=== PATIENT | female | born 1940 | race Caucasian/White ===

== ENCOUNTER → 2018-05-22 10:07 | Outpatient (CLI) | payer MEDICARE, OTHER, SELFPAY ==
[2018-05-22 12:23] LABS: Anion Gap 8 (5-15); BUN 13 mg/dL (7-18); Calcium,Total 9.5 mg/dL (8.5-10.1); Chloride 104 mmol/L (98-107); Cholesterol 203 mg/dL (200); Creatinine, Serum 0.81 mg/dL (0.55-1.02); EST Glomerular Filtration Rate 72 mL/min (>60); Est Glom Filt Rate - Afr Amer 88 mL/min (>60); Glucose 93 mg/dL (74-106); High Density Lipoprotein 69 mg/dL; Potassium 3.8 mmol/L (3.5-5.1); Sodium Level 141 mmol/L (136-145); Triglycerides 90 mg/dL; Very Low Density Lipoprotein 18 mg/dL (5-40)
== END ==
PROVIDERS: Family Provider Family Medicine; PCP Family Medicine; Visit Provider Family Medicine
DX: R07.89 Other chest pain (principal)
CPT/HCPCS: 36415; 80048; 80061

== ENCOUNTER → 2018-07-03 10:25 | Outpatient (CLI) | payer MEDICARE, OTHER, SELFPAY ==
--- NOTE | 2018-07-03 10:28 | BI_ITS ---
MAMMOGRAPHY - BILATERAL SCREENING REASON FOR EXAM: Female, 78 years old. Routine annual screening examination. PERTINENT HISTORY: Grandmother with breast cancer. TECHNIQUE: Digital bilateral breast derik (3D mammographic acquisition) in the CC and MLO projections. 2-D mediolateral oblique (MLO) and craniocaudad (CC) views of both breasts were obtained. CAD: Full Field Digital Mammography with Computer Added Detection was performed. COMPARISON: Comparison is made with prior outside examination dated January 11, 2013. FINDINGS: Breast Composition: There are scattered areas of fibroglandular density. There is a 4.3 mm x 3.8 mm well-defined nodule in the mid lateral aspect of the left breast at approximately the 3:00 position. Correlation with ultrasound is recommended. Stable small bilateral axillary lymph nodes. No other significant abnormalities are identified. BI/SCREENING MAMM (CAD), BILAT IMPRESSION: I suspect a 4.3 mm x 3.8 mm well-defined nodule at the 3:00 position of the breast. Correlation with ultrasound is recommended. ASSESSMENT CATEGORY: BIRADS Category 0: Incomplete. Need additional imaging evaluation. A letter regarding these results will be sent to the patient by the facility within 30 days. Approximately 10% of breast cancers are not detected by mammography. A normal mammogram should not delay biopsy of a clinically suspicious abnormality. [id number] Electronically Signed: Anmol Pandya MD at 13:43 EST Tel [phone], Service support ,
--- NOTE | 2018-07-03 10:30 | BD_ITS ---
STUDY: DUAL ENERGY X-RAY ABSORPTIOMETRY / DXA REASON FOR EXAM: Female, 77 years old. The patient is postmenopausal. Loss of height. TECHNIQUE: Bone Mineral Density (BMD) measurements of lumbar spine and bilateral hips were obtained. COMPARISON: Comparison is made with prior study dated July 13, 2006. FINDINGS: Lumbar Spine (L1-L4): g/cm2 (1.057) / T-score (-1.2) / Z-score (0.6) Findings are suggestive of osteopenia with a moderate fracture risk. Left Femur Total: g/cm2 (0.884) / T-score (-1.0) / Z-score (0.9) Left Femoral Neck: g/cm2 (0.827) / T-score (-1.5) / Z-score (0.5) Right Femur Total: g/cm2 (0.839) / T-score (-1.3) / Z-score (0.5) Right Femoral Neck: g/cm2 (0.829) / T-score (-1.5) / Z-score (0.5) The T-Scores on the most recent prior examination were: Lumbar Spine (L1-L4): There has been improvement of bone density since the previous examination. Left Femur Total: which represents a worsening of 2.8%. BD/Dexa Bone Density Study IMPRESSION: The patient is considered osteopenic as outlined below according to World [employer] Organization (WHO) criteria with a moderate fracture risk. There has been worsening of bone density since the previous examination. Reference Information: The T-score is the number of standard deviations above or below the standard which is normal for young adults at their peak bone mineral density. The World Health Organization (WHO) interprets the T-scores as follows: Above -1 Normal bone density Between -1 and -2.5 Osteopenia Equal to / or below -2.5 Osteoporosis As a practical clinical guideline, osteopenia may be graded as follows: Mild -1 through -1.5 Moderate -1.6 through -2.0 Severe -2.1 through -2.4 The Z-score is the number of standard deviations above or below age-matched controls. A Z-score of less than -1.5 would be considered abnormal. References: 1. NIH Osteoporosis and Related Bone Diseases http://www.osteo.org 2. International Society for Clinical Densitometry http://www.iscd.org 3. National Osteoporosis Foundation http://www.nof.org Electronically Signed: Anmol Pandya MD at 9:08 EST Tel [phone], Service support ,
== END ==
PROVIDERS: Family Provider Family Medicine; PCP Family Medicine; Visit Provider Family Medicine
DX: Z78.0 Asymptomatic menopausal state (principal); Z12.31 Encounter for screening mammogram for malignant neoplasm of breast
CPT/HCPCS: 77063; 77067; 77080

== ENCOUNTER → 2018-07-23 10:49 | Outpatient (CLI) | payer MEDICARE, OTHER, SELFPAY ==
--- NOTE | 2018-07-23 10:52 | US_ITS ---
STUDY: ULTRASOUND BREAST - LEFT REASON FOR EXAM: Female, 78 years old. Abnormal screening mammogram. TECHNIQUE: Axial and longitudinal images of the LEFT breast were performed with a high resolution ultrasound transducer. COMPARISON: Comparison is made with prior mammogram dated July 03, 2018. FINDINGS: LEFT Breast: There is a 3 mm x 4 mm x 1 mm cyst at the 3:00 position breast at 1 cm from nipple. This corresponds to the mammographic findings. US/Breast Limited Unilateral IMPRESSION: 3 mm x 4 mm x 1 mm cyst at the 3:00 position of the breast at 1 cm from the nipple. ASSESSMENT CATEGORY: BIRADS Category 2: Benign. A letter regarding these results will be sent to the patient by the facility within 30 days. Electronically Signed: Anmol Pandya MD at 14:01 EST Tel [phone], Service support ,
== END ==
PROVIDERS: Family Provider Family Medicine; PCP Family Medicine; Referring Provider Family Medicine; Visit Provider Family Medicine
DX: N60.02 Solitary cyst of left breast (principal)
CPT/HCPCS: 76642

== ENCOUNTER → 2019-02-18 15:40 | Outpatient (CLI) | payer MEDICARE, OTHER, SELFPAY ==
[2017-10-26 09:12] VITALS: BMI 36.8
--- NOTE | 2019-02-18 15:44 | RAD_ITS ---
STUDY: X-RAY - LUMBAR SPINE REASON FOR EXAM: Female, 78 years old. Low back pain TECHNIQUE: 5 view(s) of the lumbar spine were obtained. COMPARISON: None FINDINGS: Lumbar spine is intact and aligned with expected age-related degenerative changes in the discs, endplates and facets. Mineralization is normal. Paraspinous soft tissue shadows are unremarkable. SI joints are intact. RAD/L/S Spine Min 4 Views IMPRESSION: Expected age related change. Otherwise unremarkable lumbar spine. Electronically Signed: Gloria Stone, at 17:41 EDT Tel , Service support ,
== END ==
PROVIDERS: Family Provider Family Medicine; PCP Family Medicine; Referring Provider Family Medicine; Visit Provider Family Medicine
DX: M54.40 Lumbago with sciatica, unspecified side (principal)
CPT/HCPCS: 72110

== ENCOUNTER 2019-04-07 11:14 | Emergency (ER) | payer MEDICARE, OTHER, SELFPAY ==
[2019-04-07 11:14] VITALS: BP 138/77; PULSE 84; RESP 16; TEMP 36.7; O2SAT 97; BMI 30.2
--- NOTE | 2019-04-07 11:45 | RAD_ITS ---
STUDY: X-RAY - LEFT WRIST REASON FOR EXAM: Female, 78 years old. Left wrist pain after fall TECHNIQUE: 3 view(s) of the wrist were obtained. COMPARISON: None. FINDINGS: Impaction type comminuted fracture of the distal radius with possible intra-articular extension. Soft tissue swelling. Remainder is within normal limits RAD/Wrist min 3 Views IMPRESSION: As above Electronically Signed: Kamari Vasquez DO at 12:28 EDT Tel , Service support ,
--- NOTE | 2019-04-07 12:47 | ED.VIS.GEN ---
History of Present Illness <Lalito Almanza - Last Filed: 04/07/19 12:47> Informant: Patient, Significant Other Onset: Today Context: Sudden Onset Timing: Continuous Quality: sharp Location: left wrist Current Severity: Moderate Maximum Severity: Severe Worsened by: movement Relieved by: rest Associated Symptoms: denies Narrative: 78-year-old female [id number] presents with left wrist injury. Tripped and fell onto outstretched left wrist. No other injuries. No prodromal symptoms. No head trauma. No loss of consciousness. She denies numbness tingling or weakness. She is not on blood thinners. Prior similar symptoms: No Recent Illness/Hospitalization: No <Kamari Lindquist - Last Filed: 04/07/19 13:01> Chief Complaint: Upper Extremity Injury Past Medical History Smoking Status: Never smoker <Lalito Almanza - Last Filed: 04/07/19 12:47> Prior records reviewed: Yes Past Medical History: None Surgical History: no surgical history Lives: With Family Smoking Status: Never smoker <Kamari Lindquist - Last Filed: 04/07/19 13:01> - Allergies and Home Meds Allergies/Adverse Reactions: Allergies codeine Adverse Reaction (Verified 04/07/19 11:17) Upset Stomach Primary Care Physician: Daneila Dobbs DO [STAFF PHYSICIAN] - Curtis Bianchi MD [Primary Care Provider] - Review of Systems All systems negative except as indicated Musculoskeletal: Reports: Swelling, Extremity Pain <Kamari Lindquist - Last Filed: 04/07/19 13:01> Physical Exam Vital Signs/Narrative: Vital Signs Temp Pulse Resp BP Pulse Ox 04/07/19 11:14 98.1 F 84 16 138/77 H 97 <Lalito Almanza - Last Filed: 04/07/19 12:47> Vital Signs/Narrative: Vital Signs Temp Pulse Resp BP Pulse Ox 04/07/19 11:14 98.1 F 84 16 138/77 H 97 Inital Vital Signs reviewed: Yes General: Well nourished, Well developed, No Acute Distress Head: Normocephalic, Atraumatic Eyes: Perrl, EOMI ENT: Moist mucous membranes Neck: Supple, Nontender Cardiovascular: Regular rate, Regular rhythm Respiratory: No distress, CTA bilaterally, Chest nontender Abdomen: Soft, Nontender, Nondistended, Normal bowel sounds, No masses Back: Nontender Extremities: Tenderness - Diffusely swollen throughout the distal forearm and wrist. Skin intact. Diffusely tender throughout the distal radius and ulna. No snuffbox tenderness or pain with axial loading of the thumb. She has limited flexion and extension actively secondary to pain. Normal radial pulse. Normal active range of motion of all 5 fingers. Normal capillary refill and sensation all 5 fingers. No bony tenderness of the elbow. <Kamari Lindquist - Last Filed: 04/07/19 13:01> Diagnostic/Tx/Re-eval - Medical Decision Making Evaluate patient with our physician call center assistant. Patient tripped and fell. Breaking her left distal radius. Physical exam. Older female. No acute distress. HEENT exam unremarkable atraumatic. Lungs are clear. Heart regular rhythm. Chest wall nontender. Abdomen soft nontender. Moving all 4 extremities. Deformity and tenderness to the left distal radius. Consistent with a left wrist fracture. Skin is closed. Left hand is neurovascular intact. Neurologically she is awake alert deficits. Left wrist 3 views distal radius displaced fracture. Procedure: Hematoma block left wrist. Manually reduced. Short arm AP splint by ER. Impressions: 1. Fall with left distal radius displaced fracture 2. Hematoma block by ER 3. Left wrist distal radius fracture manual reduction by ER 4. Short arm AP splint by ER <Lalito Almanza - Last Filed: 04/07/19 12:47> ED Disposition <Lalito Almanza - Last Filed: 04/07/19 12:47> <Kamari Lindquist - Last Filed: 04/07/19 13:01> - Plan for ED Patient: Disposition: Home or Assisted Living Diagnosis: Distal radius fracture, left Instructions: RADIUS AND ULNA FX, Reduction Required Prescriptions: Hydrocodone Bitart/Apap 5-325 [[place] 5MG-325MG] 1 tab PO Q6H PRN PRN 3 Days #12 tab PRN Reason: Pain Prescription Printed Referrals: Curtis Bianchi MD [Primary Care Provider] - Daniela Dobbs DO [STAFF PHYSICIAN] -
--- NOTE | 2019-04-07 13:07 | ED.RN ---
1230-DR CAN AND PA IN TO SET WRIST FX AND APPLY SPLINT. LOCAL BLOCK PREFORMED. PT SALONI WELL.
== END 2019-04-07 13:09 | disposition home or self-care (01) ==
PROVIDERS: Emergency Provider Physician Assistant Medical; Family Provider Family Medicine; PCP Family Medicine
DX: S52.502A Unspecified fracture of the lower end of left radius, initial encounter for closed fracture (principal); W01.0XXA Fall on same level from slipping, tripping and stumbling without subsequent striking against object, initial encounter; Y93.9 Activity, unspecified
CPT/HCPCS: 25605; 73110; 99283

== ENCOUNTER → 2019-04-11 08:26 | Outpatient (CLI) | payer MEDICARE, OTHER, SELFPAY ==
[2019-04-11 08:20] VITALS: BMI 30.2
--- NOTE | 2019-04-11 08:28 | RAD_ITS ---
STUDY: X-RAY - LEFT WRIST REASON FOR EXAM: Female, 78 years old. Follow-up left wrist fracture. TECHNIQUE: 3 view(s) of the wrist were obtained. COMPARISON: Left wrist, April 07, 2019. FINDINGS: Again seen is the comminuted fracture of the distal radius which is unchanged in appearance. There is persistent mild dorsal angulation. Normal ulna. Normal radiocarpal articulation. Normal distal radioulnar articulation. Normal carpal bones. Normal carpal articulations. Normal carpometacarpal articulation of the thumb. Normal second through fifth carpometacarpal articulations. Normal visualized metacarpal bones. Continued soft tissue swelling. RAD/Wrist min 3 Views IMPRESSION: No interval change. Electronically Signed: Behzad Cutler DO at 16:49 EDT Tel [phone], Service support ,
== END ==
PROVIDERS: Family Provider Family Medicine; PCP Family Medicine; Referring Provider Physician Assistant; Visit Provider Physician Assistant
DX: S62.102A Fracture of unspecified carpal bone, left wrist, initial encounter for closed fracture (principal)
CPT/HCPCS: 73110

== ENCOUNTER → 2019-04-19 08:08 | Outpatient (CLI) | payer MEDICARE, OTHER, SELFPAY ==
[2019-04-19 08:04] VITALS: BMI 30.2
--- NOTE | 2019-04-19 08:09 | RAD_ITS ---
STUDY: X-RAY - LEFT WRIST REASON FOR EXAM: Female, 78 years old. Fracture follow-up TECHNIQUE: 3 view(s) of the wrist were obtained. COMPARISON: None. FINDINGS: Stable configuration of the distal radial fracture with deformity. Early healing is visualized. 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 No evidence of significant interval change. RAD/Wrist min 3 Views IMPRESSION: Stable configuration of the osseous structures, with early healing of the fracture. Electronically Signed: Alex Barbosa MD at 9:04 EDT Tel [phone], Service support ,
== END ==
PROVIDERS: Family Provider Family Medicine; PCP Family Medicine; Referring Provider Physician Assistant; Visit Provider Physician Assistant
DX: S52.502A Unspecified fracture of the lower end of left radius, initial encounter for closed fracture (principal); X58.XXXA Exposure to other specified factors, initial encounter
CPT/HCPCS: 73110

== ENCOUNTER → 2019-04-26 11:27 | Outpatient (CLI) | payer MEDICARE, OTHER, SELFPAY ==
[2019-04-19 08:04] VITALS: BMI 30.2
--- NOTE | 2019-04-26 11:28 | RAD_ITS ---
STUDY: X-RAY - LEFT WRIST REASON FOR EXAM: Female, 78 years old. Fracture TECHNIQUE: 3 view(s) of the wrist were obtained. COMPARISON: April 19, 2019 FINDINGS: Status post reduction and casting of distal radial fracture with fracture fragments in near anatomic alignment and position. No significant change since prior study. Mild callus deposition consistent with early healing RAD/Wrist min 3 Views IMPRESSION: Early healing fracture of the distal radius status post reduction and casting Electronically Signed: Cole Spann MD at 18:02 EDT , Service support ,
== END ==
PROVIDERS: Family Provider Family Medicine; PCP Family Medicine; Referring Provider Physician Assistant; Visit Provider Physician Assistant
DX: S52.502A Unspecified fracture of the lower end of left radius, initial encounter for closed fracture (principal)
CPT/HCPCS: 73110

== ENCOUNTER → 2019-05-20 08:40 | Outpatient (CLI) | payer MEDICARE, OTHER, SELFPAY ==
[2019-04-26 11:29] VITALS: BMI 30.2
--- NOTE | 2019-05-20 08:41 | RAD_ITS ---
STUDY: X-RAY - LEFT WRIST REASON FOR EXAM: Female, 78 years old. Post cast removal. TECHNIQUE: 3 view(s) of the wrist were obtained. COMPARISON: Comparison is made with prior examination dated April 26, 2019. FINDINGS: Stable appearance of the comminuted fracture of the distal radius with extension of the articular surface. There is evidence of healing. The position is unchanged. Normal radiocarpal articulation. Normal distal radioulnar articulation. Normal carpal bones. Normal carpal articulations. Normal carpometacarpal articulation of the thumb. Normal second through fifth carpometacarpal articulations. Normal visualized metacarpal bones. Soft tissue swelling. RAD/Wrist min 3 Views IMPRESSION: Healed comminuted fracture of the distal radius as described. The alignment is maintained. Electronically Signed: Anmol Pandya, at 15:46 EDT , Service support ,
== END ==
PROVIDERS: Family Provider Family Medicine; PCP Family Medicine; Referring Provider Physician Assistant; Visit Provider Physician Assistant
DX: S52.502A Unspecified fracture of the lower end of left radius, initial encounter for closed fracture (principal)
CPT/HCPCS: 73110

== ENCOUNTER → 2019-05-21 09:24 | Outpatient (CLI) | payer MEDICARE, OTHER, SELFPAY ==
[2019-04-26 11:29] VITALS: BMI 30.2
[2019-05-20 09:15] VITALS: BMI 30.2
--- NOTE | 2019-05-21 10:00 | MRI_ITS ---
STUDY: MRI LUMBAR SPINE WITHOUT CONTRAST REASON FOR EXAM: Female, 78 years old. Low back pain. Sciatica. Pain radiates to the right leg. TECHNIQUE: Standardized fat and water weighted pulse sequences were obtained in the sagittal and axial planes. COMPARISON: X-ray dated February 18, 2019. FINDINGS: Slightly exaggerated lumbar lordosis. Minimal levoscoliosis. Conus medullaris terminates normally at the T12-L1 level. T9 hemangioma. L4 hemangioma. No acute fracture. No dislocation. No bone destruction. Paraspinal muscle atrophy. Small renal cysts. Normal aorta. Normal retroperitoneum. T12-L1: Mild endplate spondylosis. Shallow disc bulge. Facet joint arthrosis. Normal central canal and bilateral lateral recesses. Normal bilateral intervertebral neural foramina. Minimal grade 1 spondylolisthesis. L1-2: Mild endplate spondylosis. Disc desiccation. Facet joint arthrosis. Normal central canal and bilateral lateral recesses. Normal bilateral intervertebral neural foramina. L2-3: Normal endplates. Disc bulge with minimal central canal narrowing. Facet joint arthrosis. Normal bilateral lateral recesses. Bilateral neural foraminal narrowing without impingement. L3-4: Moderate endplate spondylosis. Disc bulge with mild central canal narrowing. Facet joint arthrosis. Normal and bilateral lateral recesses. Bilateral neural foramina narrowing with early nerve root contact on the right. L4-5: Mild endplate spondylosis. Disc bulge with moderate/severe central canal narrowing. Facet joint arthrosis. Bilateral lateral recess narrowing with impingement. Bilateral neural foraminal narrowing with impingement. Minimal grade 1 spondylolisthesis. L5-S1: Mild endplate spondylosis. Disc bulge, subtly prominent centrally, with mild central canal narrowing. Facet joint arthrosis. Normal bilateral lateral recesses. Bilateral neural foraminal narrowing with impingement on the left. MRI/Spine Lumbar (Routine) IMPRESSION: Multilevel intervertebral disc disease with central canal narrowing predominating at L4-5 Multilevel lateral recess narrowing with impingement of the descending L5 nerve roots Multilevel neural foraminal narrowing with contact of the right L3, bilateral L4 and left L5 nerve roots Exaggerated lumbar lordosis, minimal levoscoliosis and mild/moderate osteoarthritis Electronically Signed: Arun Diaz DO at 10:50 EDT Tel , Service support ,
== END ==
PROVIDERS: Family Provider Family Medicine; PCP Family Medicine; Referring Provider Family Medicine; Visit Provider Family Medicine
DX: M54.40 Lumbago with sciatica, unspecified side (principal)
CPT/HCPCS: 72148

== ENCOUNTER 2019-06-14 08:30 | Outpatient (RCR) | payer MEDICARE, OTHER, SELFPAY ==
--- NOTE | 2019-03-28 12:57 | HP.PTEVAL_ITS ---
Patient's Visit Information RADHA LING is a 78 year old F referred to Physical Therapy by Curtis Bianchi MD with a diagnosis of Lumbago with sciatica. Date of Evaluation: 03/28/19 Physical Therapist: Arun Rees DPT, OCS, CSCS - Visit Plan Frequency: 2x /Week Duration: 4-6 Weeks Plan: 2x/week for 2-4 weeks as needed for : R LE strength in gym and progressing back to seeing eye dog trainer(focus quad , hip flexor and functional hip strength). Ensure LB ROM stays painfree with some gentle yoga flows to stretch. Let EG know for quick recheck if back pain returns. - Subjective Findings: I tried to treat myself and it did not work. Has seeing eye dog trainer 2x/week with bands. Got back pain after doing leg extension in R LBP adn down R leg, that was 5 weeks ago. Could walk and sit but lying down at night was painful on back or R side. Alleve helped for a while abut not much and saw doctor R. X rays showed inflammation in upper lumbar. He gave her prednisone tablets 2 for 5 days and ended yesterday of 5 days of one. And they have helped considerably. Also muscle relaxer at night. They helped a lot and pain is gone. I get elusive pain in R LB or medial lower leg. Doctor tolder her it was weak in the knee.Gets pain elusively with walking now. Sleeping is OK lately. Tried massage therapist weekly and feels better getting off the table. Has kept up with workout program except for legs. Activities are normal but worries about the stairs due to weakness in R LE. Basic ADLS are normal. 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 No numbness or tingling. - Pain R LBP and leg Pain Intensity (Out of 10): 2 Pain Intensity Range: 0, 2 - Objective Walks normal and trasnfers normal but feels weak R LE. Steps show functional weakness in R LE adn require rail.. AROM knees and hips and ankles WFL. LB AROM not painful and not limited. PA pressure L45 does cause some trasnient pain. reflexes 2/3 patella and achilles. Sensation WNL in LE to gross light touch. Strength is 4/5 in all LE muscles except R quad and hip flexor which is 3+. hip abd B 3+. Flexibility in LE WFL and without pain. No tenderness in lumbar paraspinals. Balance is good. - Goals Goal 1:: Pain in R LE abolished. Goal Time Frame: 2-4 Weeks Goal 2:: Pt feel weakness in R LE 75% improved. Goal Time Frame: 2-4 Weeks Goal 3:: Steps without rail or signs of R LE weakness. Goal Time Frame: 2-4 Weeks - Rehabilitation Potential Physical Therapy Diagnosis: Lumbago with sciatica Rehabilitation Potential: Fair - Anticipated Interventions Patient/Client Instruction: Educate patient on: Condition, Plan of Care For the Purpose of:: To decrease pain, To improve muscle performance and motor function Therapeutic Exercise to Include: Strength training, Passive ROM, Active ROM For the Purpose of:: To decrease pain, To improve muscle performance and motor function Thank you for the opportunity to evaluate your patient. For Medicare and Medicare HMO plans, please review the plan of care and approve it. It will need to be FAXED BACK to us at [phone] for Medicare purposes. For Medicare only, by signing this I certify the plan of care. Please let me know if there are questions or concerns regarding this plan of care. Physician Signature: ___Date:
--- NOTE | 2019-04-16 18:18 | HP.PTREVAL ---
Curtis Bianchi MD, It has been my pleasure to treat RADHA LING over the last 4 visits for Lumbago with sciatica. Please see the progress note below for an update on the physical therapy plan of care! Subjective: Broke L wrist in two places tripping on bedspread tangled in legs. Doing exercises she has been shown in PT and loves them and does well with them. Still feels weakness intermittently in R LE without pattern. Overall getting in and out of car better. Gets in high bed well. Getting in and out of chairs. Legs feels tronger with exercises. Objective/Function: Walking well with good balance. R LE strength is 4/5 abd adn HSC adn 3+ to 4- in quad. Obviously still weak on descending steps but progressing. Plan Plan: Pt to exercises LE strength at home dailya dn call doctor if pain returns, will f/u in 3 weeks for progression of LE exercises if needed adn lieklkira d/c. Goals Goal 1:: Pain in R LE abolished. Goal Time Frame: 2-4 Weeks Goal Progress: Goal Met Goal 2:: Pt feel weakness in R LE 75% improved. Goal Time Frame: 2-4 Weeks Goal Progress: Goal Met Goal 3:: Steps without rail or signs of R LE weakness. Goal Time Frame: 2-4 Weeks Goal Progress: slow progression. Anticipated Interventions Patient/Client Instruction: Educate patient on: Condition, Plan of Care For the Purpose of:: To decrease pain, To improve muscle performance and motor function Therapeutic Exercise to Include: Strength training, Passive ROM, Active ROM For the Purpose of:: To decrease pain, To improve muscle performance and motor function Please do not hesitate to contact me at [phone] by phone or if you have questions or concerns regarding this new plan of care! Sincerely, Arun Rees, DPT, OCS, CSCS
--- NOTE | 2019-06-14 09:30 | HP.PTREVAL ---
Curtis Bianchi MD, It has been my pleasure to treat RADHA LING over the last 5 visits for Lumbago with sciatica. Please see the progress note below for an update on the physical therapy plan of care! Subjective: LBP from back to knee. is doing OK. L adames is not sore anymore but top of foot feels electrical impulse intermittently without reason. Was on feet alot last night from 4-7 adn then sat alot. Needed to ice it at home. Ice helps. Exercises are going wella dn getting stronger. Feels like ankle is getting strongera little bit. Dr. Bianchi got MRI and said stenosis. Saw Basali 3 weeks ago and did not go well. He recommended back surgery and is not ready for that. Will see Dr. Kumari Jul 03 in [place]. MRI showed stenosis. Objective/Function: Pt had set back since last visit with resumption of pain and weakness . Pain is better now but still has the weakness adn some subjective nerve complaints intermittently in R foot top. R DF strength 3 and L is 4+. Inv and eversion 3+ R adn 4 L. HSC 4- L and 4 R. knee ext 4+ B. Hip flexion 4 B. Obvious weakness R DF is main problem adn not improving. No toverly painful today and walking well with mild steppage R. Sensation seems WNL to gross light touch currently. OVERALL ALFREDOEITMeir IS DOING WELL WITH PAIN AND EX BUT WEAKNESS PERSISTS ADN IS APPROPRIATE TO SEE COMPUTER SCIENCE PROFESSOR TO GET OTHER OPTIONS. Plan Plan: Pt Due to non improving weakness in R DF, i have recommended hold PT until that visit. May be appropriate for more PT if no other options but as long as pain stays manageable, she can continue HEP.PT to [id number] ROM and stretching and strengthening ex at home and with ehr trainer. Will call after visit to Dr. Kumari in two weeks. Goals Goal 1:: Pain in R LE abolished. Goal Time Frame: 2-4 Weeks Goal Progress: Goal Met Goal 2:: Pt feel weakness in R LE 75% improved. Goal Time Frame: 2-4 Weeks Goal Progress: Not Progressing Goal 3:: Steps without rail or signs of R LE weakness. Goal Time Frame: 2-4 Weeks Goal Progress: Not Progressing Anticipated Interventions Patient/Client Instruction: Educate patient on: Condition, Plan of Care For the Purpose of:: To decrease pain, To improve muscle performance and motor function Therapeutic Exercise to Include: Strength training, Passive ROM, Active ROM For the Purpose of:: To decrease pain, To improve muscle performance and motor function Please do not hesitate to contact me at [phone] by phone or if you have questions or concerns regarding this new plan of care! Sincerely, Arun Rees, DPT, OCS, CSCS
--- NOTE | 2019-07-04 12:18 | HP.PTDCSUM_ITS ---
HP - PT D/C Summary It has been my pleasure to treat RADHA LING under orders from Curtis Bianchi MD, for the diagnosis of Lumbago with sciatica for a total of 5 visit(s). Discharge Date: Please see the following information for a summary of their discharge status. - Subjective Subjective: LBP from back to knee. is doing OK. L adames is not sore anymore but top of foot feels electrical impulse intermittently without reason. Was on feet alot last night from 4-7 adn then sat alot. Needed to ice it at home. Ice helps. Exercises are going wella dn getting stronger. Feels like ankle is getting strongera little bit. Dr. Bianchi got MRI and said stenosis. Saw Basali 3 weeks ago and did not go well. He recommended back surgery and is not ready for that. Will see Dr. Kumari Jul 03 in [place]. MRI showed stenosis. - Pain R LBP and leg Pain Intensity (Out of 10): 0 - Overall Improvement % Improvement: 60 - Objective Objective/Function: Pt had set back since last visit with resumption of pain and weakness . Pain is better now but still has the weakness adn some subjective nerve complaints intermittently in R foot top. R DF strength 3 and L is 4+. Inv and eversion 3+ R adn 4 L. HSC 4- L and 4 R. knee ext 4+ B. Hip flexion 4 B. Obvious weakness R DF is main problem adn not improving. No toverly painful today and walking well with mild steppage R. Sensation seems WNL to gross light touch currently. OVERALL PATEITN IS DOING WELL WITH PAIN AND EX BUT WEAKNESS PERSISTS ADN IS APPROPRIATE TO SEE PHOTOENGRAVING SKETCH MAKER TO GET OTHER OPTIONS. - Goals Goal 1:: Pain in R LE abolished. Goal Progress: Goal Met Goal 2:: Pt feel weakness in R LE 75% improved. Goal Progress: Not Progressing Goal 3:: Steps without rail or signs of R LE weakness. Goal Progress: Not Progressing - Plan Plan: Pt moved on to Dr Kumari and will be sent back with new script for aFO and therapoy and EMG tryign to avoid surgery. Will reevaluate under new script. - D/C Information If there are questions or concerns regarding this patient's physical therapy, please feel free to call me at [phone]. Thank you for the referral of this patient. Sincerely, Arun Rees, DPT, OCS, CSCS
== END 2019-06-14 17:00 | disposition home or self-care (01) ==
LOC: PT 08:30
PROVIDERS: Family Provider Family Medicine; PCP Family Medicine; Referring Provider Family Medicine; Visit Provider Family Medicine
DX: M54.41 Lumbago with sciatica, right side (principal)
CPT/HCPCS: 97110; 97162; 97164; 97530

== ENCOUNTER 2019-10-04 09:00 | Outpatient (RCR) | payer MEDICARE, OTHER, SELFPAY ==
[2019-04-26 11:29] VITALS: BMI 30.2
[2019-05-20 09:15] VITALS: BMI 30.2
--- NOTE | 2019-05-27 19:31 | HP.OTEVAL_ITS ---
Patient's Visit Information RADHA LING is a 78 year old F, referred to Occupational Therapy by LULI Silverman, with a diagnosis of left distal radius fracture. Date of Evaluation: 05/27/19 Occupational Therapist: Nida Morgan, LINUS/Jagdeep, CHT - Subjective Subjective: This 78 year old female was seen for OT eval withdx of left distal radius fracture. pt states she is doing ok, states she had a fall after changing the bed sheets. pt works at [employer]- states she has returned to working shortly after her ER visit. pt states she has noticed since her cast was removed she has increase weakness, pain and limited ROM to perform ADLs and IADls at PLOF. 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 Pt will demo an increase in lateral and tripod pinch by 2# to increase pts independent with opening baggies, containers at PLOF by D/C. Goal:: Pt will demo an increase in wrist ROM equal to unaffected wrist to return pt to PLOF with grooming, dressing and home mtg tasks by D/C. Goal:: Pt will report pain no greater than 1/10 with use of affected hand with BADLs and IADLs by d/c. - Rehabilitation General Assessment: Pt demo with limted left wrist ROM and strength since her fall. pt has needed increase assistance with ADLs and IADLs. Pt would benefit from skilled OT services 1x week for 4 weeks to return pt to PLOF. Today pt was ed. by therapist on PROM of the wrist flex/ext, tendon glide for fingers and forearm supination. pt was given handout and demo understanding of ex and agree to POC. Rehabilitation Potential: Good - Anticipated Interventions Anticipated Interventions: A/AAROM/PROM, Strengthening, Edema Control, Modalities, Orthoses, Joint Protection/Energy Conservation - Visit Plan Frequency: 1-2x /Week Duration: 4 Weeks TEXT: Thank you for the opportunity to evaluate your patient. For Medicare and Medicare HMO plans, please review the plan of care and approve it. It will need to be FAXED BACK to us at [phone] for Medicare purposes. Please let me know if there are questions or concerns regarding this plan of care. Physician Signature: Date:
--- NOTE | 2019-07-16 11:03 | HP.PTEVAL ---
Patient's Visit Information RADHA LING is a 79 year old F referred to Physical Therapy by LULI Silverman with a diagnosis of LBP with sciatic. Date of Evaluation: 07/16/19 Physical Therapist: Arun Rees, YANNT, OCS, CSCS - Visit Plan Frequency: 2x /Week Duration: 4-6 Weeks Plan: 2x/week x 4 weeks. attempt FES on R DFers a couple times to see if we can get contracction. R ankle strength adn proprioception. LB core strength and progress to HEP. Pt to get AFO from [facility]. - Subjective Findings: Fell changing the bed in March. Saw Dr. Kumari regarding weakness adn LBP. See history in old chart. Had LBP in March and prednosione helped. Still has LBP and R lower leg pain. Pain is on shinR and front/medial ankle and into top of foot. Pain comes and goes like an electrical impulse. Pain is 4/10 at times CBD oil gets rid of it for [address] Kumari worried about toes adn will have NCT on 07/31. No real LBP in a long time...months. Will see [facility] 08/09 for AFO. Has R foot drop. 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 HEP includes gastroc stretch, bug marching, LE rot in NWB, HR/TR adn piriformis stretch. Also passive DF. Retired from [employer] as of last week. Is very active. activities very normal but has foot slap and pain whcih is not limiting her much. Stairs in condo are fine with rail, higher rise is a little more difficult. - Pain R LE. Pain Intensity (Out of 10): 3 Pain Intensity Range: 0, 4 - Objective R ankle DF 4#, inv 8# ev 10#, L Df 34#; AROM R DF limited as is inv adn eversion slightly. Walking R foot slap. No trips today, Walks I on firm flat surface. Steps are reciprocal and require rail adn 2 rails to descend for safety. LB AROM is min limited in ext adn min in flexion adn min in B SB without pain. reflexes 2/3 patella and achilles. Sensation in R anterior ankle diminished vs L. - Balance Scores Functional Gait Assessment Score: 26 % Disability: 13.3400 - Goals Goal 1:: show improvement to 10# in R DF to avoid foot slap Goal Time Frame: 4-6 Weeks Goal 2:: I and safe gait and 27/30 FGA to diminish fall risk. Goal Time Frame: 4-6 Weeks Goal 3:: I approp HEP to limit future problems Goal Time Frame: 4-6 Weeks Goal 4:: Pt feel 75% better in pain and ankle function Goal Time Frame: 4-6 Weeks - Rehabilitation Potential Physical Therapy Diagnosis: LBP with sciatica and weakness. Rehabilitation Potential: Questionable - Anticipated Interventions Patient/Client Instruction: Educate patient on: Condition, Plan of Care For the Purpose of:: To decrease pain, To increase tolerance to activity/condition/position, To improve ability of physical actions for home/community/work/leisure, To improve gait and locomotor functions Therapeutic Exercise to Include: Strength training, Flexibilty training, Gait and locomotor training For the Purpose of:: To decrease pain, To improve muscle performance and motor function Thank you for the opportunity to evaluate your patient. For Medicare and Medicare HMO plans, please review the plan of care and approve it. It will need to be FAXED BACK to us at [phone] for Medicare purposes. For Medicare only, by signing this I certify the plan of care. Please let me know if there are questions or concerns regarding this plan of care. Physician Signature: Date:
--- NOTE | 2019-08-29 12:01 | HP.PTREVAL ---
LULI Silverman, It has been my pleasure to treat RADHA LING over the last 9 visits for LBP with sciatic. Please see the progress note below for an update on the physical therapy plan of care! Subjective: Im going to have surgery. Will get brace sometime this month. Dr. Kumari is 90% sure she can help with surgery. Will talk with doctor soon about that. Feels like needs more therapy. Objective/Function: 12.5# R DF. (+2.5#) improving slowly and questionably functionally although pt feeling much better with confidence in R LE. L DF is 40#. Walking with slight steppage, steps reciprocal without rail up and down today. IMPROVING ADN APPROPRIATE TO CONTINUE FOR BALANCE AND ANKLE STRENGTH ADN ES WITH QUESTIONABLE PROGNOSIS FOR FURTHER IMPROVEMENT. Plan Plan: 2x/week for 4 weeks for FES on R ankle DF adn gait/balance progression with R ankle.Tandem walk. Goals Goal 1:: show improvement to 10# in R DF to avoid foot slap Goal Time Frame: 4-6 Weeks Goal Progress: Goal Met Goal 2:: I and safe gait and 27/30 FGA to diminish fall risk. Goal Time Frame: 4-6 Weeks Goal Progress: Progressing, appropriate Goal 3:: I approp HEP to limit future problems Goal Time Frame: 4-6 Weeks Goal Progress: Progressing Goal 4:: Pt feel 75% better in pain and ankle function Goal Time Frame: 4-6 Weeks Goal Progress: Progressing Anticipated Interventions Patient/Client Instruction: Educate patient on: Condition, Plan of Care For the Purpose of:: To decrease pain, To increase tolerance to activity/condition/position, To improve ability of physical actions for home/community/work/leisure, To improve gait and locomotor functions Therapeutic Exercise to Include: Strength training, Flexibilty training, Gait and locomotor training For the Purpose of:: To decrease pain, To improve muscle performance and motor function Please do not hesitate to contact me at [phone] by phone or if you have questions or concerns regarding this new plan of care! Sincerely, Arun Rees, DPT, OCS, CSCS
--- NOTE | 2019-09-26 10:27 | HP.PTREVAL ---
LULI Silverman, It has been my pleasure to treat RADHA LING over the last 17 visits for LBP with sciatic. Please see the progress note below for an update on the physical therapy plan of care! Subjective: Getting better, Ankle is stronger. Will have surgery on 10/07 and had preop. Doctor was happy with strength. Fusion L45. Pain is in R lower leg adn is high today 10/07, normally 0-1. No back pain unless overdoes it. Sitting is OK. Sleeping OK. No falls , balance feels OK. Wants to do therapy one more week. Objective/Function: Walking look sexceelent except for the right ankle DF weakness which persists and is measured at 7.5# today. Has some steppage in gait but does not like brace and does nto want to wear it. I educated her on its purpose adn need to be careful if she is not going to wear it. Overall moving well and feeling better. Plan Plan: Continue 2 visits to maintain strength/FES to DF before surgery then will d/c until post surgical script is given. Fair prognosis. Goals Goal 1:: show improvement to 10# in R DF to avoid foot slap Goal Time Frame: 4-6 Weeks Goal Progress: Goal Met Goal 2:: I and safe gait and FGA to diminish fall risk. Goal Time Frame: 4-6 Weeks Goal Progress: Progressing Goal 3:: I approp HEP to limit future problems Goal Time Frame: 4-6 Weeks Goal Progress: Progressing Goal 4:: Pt feel 75% better in pain and ankle function Goal Time Frame: 4-6 Weeks Goal Progress: Progressing Anticipated Interventions Patient/Client Instruction: Educate patient on: Condition, Plan of Care For the Purpose of:: To decrease pain, To increase tolerance to activity/condition/position, To improve ability of physical actions for home/community/work/leisure, To improve gait and locomotor functions Therapeutic Exercise to Include: Strength training, Flexibilty training, Gait and locomotor training For the Purpose of:: To decrease pain, To improve muscle performance and motor function Please do not hesitate to contact me at [phone] by phone or if you have questions or concerns regarding this new plan of care! Sincerely, Arun Rees, DPT, OCS, CSCS
== END 2019-10-04 17:00 | disposition home or self-care (01) ==
LOC: PT 09:00
PROVIDERS: Family Provider Family Medicine; PCP Family Medicine; Referring Provider Physician Assistant; Visit Provider Physician Assistant
DX: S52.502D Unspecified fracture of the lower end of left radius, subsequent encounter for closed fracture with routine healing (principal)
CPT/HCPCS: 97014; 97032; 97035; 97110; 97140; 97162; 97164; 97166; 97530; G0283

== ENCOUNTER 2019-10-11 12:40 | Inpatient (IN) | payer MEDICARE, OTHER, SELFPAY ==
[2019-08-06 11:21] VITALS: BMI 30.2
[2019-10-11 12:58] VITALS: BMI 32.1
[2019-10-11 13:09] VITALS: BMI 32.1
[2019-10-11 13:21] VITALS: BP 126/68; PULSE 72; RESP 14; TEMP 36.3; O2SAT 98
[2019-10-11] MEDS: Acetaminophen 325 MG Tablet 650 MG PO ×2 (15:00→20:59)
--- NOTE | 2019-10-11 15:23 | HP.PCM_ITS ---
Problem List (1) Debility Status: Acute (2) Lumbar radiculopathy Status: Acute History of Present Illness Date of Admission: 10/11/19 Chief Complaint: Here for rehabilitation, strengthening, prior to discharge home with . The patient is a 79 year old Female with below past medical history with following: Right dorsal foot pain, right adames pain. Right ankle weakness, right foot drop. Acute right L4, L5 radiculopathy on EMG. PT, home exercise since April 2019. 08/06/[address] Kumari, offered surgery. 10/07/2019 Dr. Kumari performed L4-S1 laminectomy with instrumented fusion. Post-operative pain well controlled. 10/11/2019 Admit to TCU with debility, here for rehabilitation, strengthening, prior to discharge home with . Resident c/o left hamstring strain, heat with K-Pad. Past Medical History Allergies codeine Adverse Reaction (Verified 08/06/19 10:45) Upset Stomach Home Medications: Ambulatory Orders Medication Instructions Recorded multivitamin 1 tab PO QAM 10/19/17 Acetaminophen 650 mg PO Q4H PRN PRN 10/11/19 Ascorbic Acid 500 mg PO DAILY 10/11/19 Bisacodyl 10 mg WV DAILY PRN PRN 10/11/19 Calcium Carbonate/Vitamin D3 1 ea PO DAILY 10/11/19 [Calcium 500-Vit D3 200 Tablet] Docusate Sodium 100 mg PO BID 10/11/19 Enoxaparin [Lovenox] 40 mg SUBCUT DAILY@0600 10/11/19 Glucos Sul 2Kcl/MSM/Chond/C/Mn 1 ea PO DAILY 10/11/19 [Glucosamine Chondroitin Cap] Oxycodone [Oxyir] 2.5 - 5 mg PO Q6H PRN PRN 10/11/19 Polyethylene Glycol 3350 [Miralax] 17 gm PO DAILY 10/11/19 Sennosides [Senna] 8.6 mg PO BID PRN PRN 10/11/19 Surgical History: hysterectomy Psychiatric History: No pertinent psych hx, Attn. deficit disorder Lives: Spouse/ Significant Other Smoking Status: Never smoker Tobacco Use: Non-smoker Alcohol: Occasional - Wine several times per week. Drugs: None - *Family History Maternal History Items: Cancer Paternal History Items: Cancer Review of Systems Constitutional: Denies: Chills, Fever, Weight Change HEENT: Denies: Head Aches, Sinus Congestion, Sinus Drainage Cardiovascular: Denies: Chest Pain, Palpitations Respiratory: Denies: Cough, Shortness of breath at rest, Sputum production Gastrointestinal: Denies: Abdominal Pain, Nausea, Vomiting Genitourinary: Denies: Dysuria Musculoskeletal: Denies: Joint Pain, Joint Tenderness Skin: Denies: Rash, Wounds Neurological: Denies: Numbness, Tingling, Focal weakness Psychiatric: Denies: Anxiety, Depression, Homicidal Ideations, Suicidal Ideations Hematologic/ Lymphatic: Denies: Easy Bruising, Easy Bleeding VTE Information - Inpt Only VTE Present on Admission: No VTE Mechan Device Prophylaxis: Knee High MARGE Hose VTE Pharm Prophylaxis ordered?: Yes Patient Problems: Active and Suspected Problems (Last Reviewed 10/26/17 @ 09:13 by Rosario Marshall) Debility (Acute) Lumbar radiculopathy (Acute) - Physical Exam Vitals/I&O's: Vital Signs Temp Pulse Resp BP Pulse Ox 97.4 F L 72 14 126/68 H 98 10/11/19 13:21 10/11/19 13:21 10/11/19 13:21 10/11/19 13:21 10/11/19 13:21 Oxygen Delivery Method Room Air Weight: 82.1 kg Body Mass Index (BMI) 32.1 General: Alert, Oriented x3, Cooperative HEENT: Atraumatic, PERRLA, EOMI, Normocephalic Neck: Supple, No JVD, Negative Carotid Bruits Lungs: Clear to auscultation, Normal air movement Cardiovascular: Regular rate, No murmurs Abdomen: Bowel Sounds Present, Soft, Non Tender Extremities: No edema, Capillary Refill Less than 3 Seconds Skin: No rashes, No breakdown Musculoskeletal: No Tenderness to Palpation of Joints or Extremities Neurological: Cranial nerves II-XII grossly intact Psych/Mental Status: Normal Affect, Appropriate Current Medications Acetaminophen (Tylenol) 650 mg PO Q4H PRN PRN PRN Reason: Pain Score 1-10/10 Last Admin: 10/11/19 15:00 Dose: 650 mg Documented by: Ascorbic Acid (Vitamin C) 500 mg PO DAILYCM GLADYS Bisacodyl (Dulcolax) 10 mg RECTAL DAILY PRN PRN PRN Reason: Constipation Calcium/Vitamin D (Os-Rhett 500mg + D) 1 tablet PO DAILYCM GLADYS Docusate Sodium (Colace) 100 mg PO BID GLADYS Enoxaparin Sodium (Lovenox) 40 mg SC DAILY@0600 [facility] Menthol (Bengay Vanishing Scent) 1 applic TOPICAL TID PRN PRN PRN Reason: Pain Score 1-10/10 Multivitamins (Multivitamin) 1 tablet PO DAILY@0800 [facility] Oxycodone HCl (Oxyir) 2.5 - 5 mg PO Q6H PRN PRN PRN Reason: Pain Score 4-10/10 Polyethylene Glycol (Miralax) 17 gm PO DAILY GLADYS Senna (Senokot) 1 tablet PO BID PRN PRN PRN Reason: CONSTIPATION Tuberculin PPD (Tubersol, Aplisol, Ppd) 5 tu ID X1 ONE Stop: 10/12/19 10:01 Tuberculin PPD (Tubersol, Aplisol, Ppd) 5 tu ID X1 ONE Stop: 10/19/19 10:01 Assessment/Plan All Active Problems (Last Reviewed 10/26/17 @ 09:13 by Rosario Marshall) Debility (Acute) Lumbar radiculopathy (Acute) Occipital scalp laceration (Acute) 79 year old female with below past medical history significant for right L4, L5 radiculopathy, underwent L4-S1 laminectomy with instrumented fusion 10/07/[address] Kumari, admitted to TCU with debility, here for rehabilitation, strengthening, prior to discharge home with . * Debility - PT/OT. * Pain - Tylenol 650MG Q4H PRN pain (1-5), Oxycodone 5MG Q4H PRN pain (6-10), Bengay topical TID, K-pad. * Bowel - Miralax 17GM daily, Colace 100MG BID, Senna/colace 1 tablet BID PRN, Dulcolax 10MG WV daily PRN. * Adult immunization - Administer Prevnar 13, Pneumovax 23, Fluzone as appropriate. * DVT prophylaxis - Lovenox 40MG SC daily. * Vitamin C deficiency - Vitamin C 500MG daily. * Calcium deficiency - Calcium with D 1 tablet daily. * Nutrition - MVI daily.
--- NOTE | 2019-10-11 16:04 | CASEMGMT ---
Social Work Reviewed and agreed with social work design intern documentation on this date. Rachael Lisa, [employer] MANAGER
[2019-10-11] MEDS: oxyCODONE 5 MG Tablet PO (18:49)
[2019-10-12] MEDS: oxyCODONE 5 MG Tablet PO ×5 (00:31→20:04)
[2019-10-12] MEDS: Acetaminophen 325 MG Tablet 650 MG PO ×4 (03:02→22:31)
[2019-10-12] MEDS: Enoxaparin 40 MG/0.4 ML Syringe SC (04:39)
[2019-10-12] MEDS: Calcium Carb/Vitamin D 1 TABLET Tablet PO (08:00)
[2019-10-12] MEDS: Multivitamins,Therapeutic Tablet 1 TABLET PO (08:00)
[2019-10-12] MEDS: Ascorbic Acid 500 MG Tablet PO (08:00)
[2019-10-12 08:38] LABS: Absolute Lymphocyte Count 1.86 X10^3/uL (0.83-4.51); Absolute Neutrophil Count 4.2 X10^3/uL (2.0-7.7); Basophil# 0.04 X10^3/uL; Basophil% 0.6 % (0-1); Eosinophil# 0.21 X10^3/uL; Eosinophils% 3.1 % (0-5); Hematocrit 34.8 % (37-47); Hemoglobin 11.8 g/dL (12.0-15.0); Lymphocyte # 1.86 X10^3/ul (4.0); Lymphocyte % 27.5 % (19-41); Mean Corp Hgb Conc 33.9 g/dL (32-36); Mean Corpuscular Hgb 31.5 pg (27.0-32.0); Mean Corpuscular Volume 92.8 fL (81-99); Mean Platelet Vol. 9.3 fl (6.2-12.0); Monocyte# 0.44 X10^3/uL; Monocyte% 6.5 % (0-10); NRBC Flagged by Analyzer 0 % (0-5); Platelet Count 227 K/mm3 (150-450); RBC Distribution Width CV 11.7 % (11.6-14.6); Red Blood Count 3.75 M/mm3 (4.2-5.4); White Blood Count 6.8 K/mm3 (4.4-11.0)
--- NOTE | 2019-10-12 09:03 | NURSING ---
Received telephone order from Dr. Muhammad to change patient's dressing to surgical site daily.
[2019-10-12 09:30] LABS: Anion Gap 9 (5-15); BUN 8 mg/dL (7-18); BUN/Creat Ratio 14.2 RATIO (10-20); Calcium,Total 9.3 mg/dL (8.5-10.1); Chloride 103 mmol/L (98-107); Creatinine, Serum 0.56 mg/dL (0.55-1.02); EST Glomerular Filtration Rate 110 mL/min (>60); Est Glom Filt Rate - Afr Amer 133 mL/min (>60); Estimated Creatinine Clearance 37.74 ml/min; Glucose 129 mg/dL (74-106); Potassium 3.7 mmol/L (3.5-5.1); Sodium Level 138 mmol/L (136-145)
[2019-10-12] MEDS: Tuberculin,Purif.prot.deriv. 50 TU/ML Vial 5 ML ID (10:38)
[2019-10-12 14:07] VITALS: BP 126/63; PULSE 75; RESP 18; TEMP 36.8; O2SAT 98
[2019-10-13] MEDS: oxyCODONE 5 MG Tablet PO ×5 (00:58→21:00)
[2019-10-13] MEDS: Acetaminophen 325 MG Tablet 650 MG PO ×5 (03:33→23:27)
[2019-10-13] MEDS: Enoxaparin 40 MG/0.4 ML Syringe SC (06:04)
[2019-10-13] MEDS: Polyethylene Glycol 3350 17 GM PACKET PO (06:05)
--- NOTE | 2019-10-13 06:24 | NURSING ---
0615- pt c/o increasing L hamstring pain dull/achy radiates to knee & hip. No swelling/redness noted. Pt states pain is worse with movement. Was using KPad but requesting to use her own polar care to site now. Also taking PRN oxyIR and tylenol PRN for back/incision pain and L hamstring pain. Note left for Dr. Muhammad and will update oncoming RN.
[2019-10-13] MEDS: Multivitamins,Therapeutic Tablet 1 TABLET PO (08:40)
[2019-10-13] MEDS: Ascorbic Acid 500 MG Tablet PO (08:40)
[2019-10-13] MEDS: Calcium Carb/Vitamin D 1 TABLET Tablet PO (08:40)
[2019-10-13 12:01] VITALS: PULSE 66; RESP 16
[2019-10-13 14:06] VITALS: BP 148/71; PULSE 78; RESP 16; TEMP 36.7; O2SAT 98
--- NOTE | 2019-10-13 14:23 | NURSING ---
Notified Dr. Muhammad of patient c/o pain L leg and hip. Received new order for b/l doppler for tomorrow. order repeated back.
[2019-10-14] MEDS: oxyCODONE 5 MG Tablet PO ×5 (02:49→22:00)
[2019-10-14] MEDS: Enoxaparin 40 MG/0.4 ML Syringe SC (05:36)
[2019-10-14] MEDS: Polyethylene Glycol 3350 17 GM PACKET PO (05:36)
[2019-10-14] MEDS: Acetaminophen 325 MG Tablet 650 MG PO ×2 (05:36→15:06)
[2019-10-14] MEDS: Docusate Sodium 100 MG Capsule PO (05:36)
--- NOTE | 2019-10-14 08:00 | VDLE_ITS ---
Reason For Study: RLE PAIN RIGHT LEFT GSV is normal. GSV is normal. CFV is compressible, spontaneous, phasic, CFV is compressible, spontaneous, phasic, competent and demonstrates normal competent, and demonstrates normal augmentation. augmentation. FV is compressible, spontaneous, phasic, FV is compressible, spontaneous, phasic, competent and demonstrates normal competent and demonstrates normal augmentation. augmentation. POP V is compressible, spontaneous, phasic, POP V is compressible, spontaneous, phasic, competent and demonstrates normal competent and demonstrates normal augmentation. augmentation. T/P Trunk is compressible. T/P Trunk is compressible. PTV is compressible. PTV is compressible. RT PerV is compressible. LT PerV is compressible. Procedure Exam performed portable in patient room. The exam was diagnostic. A preliminary report was called and/or faxed to [facility]. Interpretation Summary No evidence for acute deep venous thrombosis bilateral lower extremities with patent and compressible bilateral great saphenous veins. Ordering Physician: Mark Muhammad Referring Physician: Demetris Bianchi Performed By: Mayela Rodríguez, NILSON, RVT
--- NOTE | 2019-10-14 08:00 | NURSING ---
Addendum entered by Qing Alves 10/14/19 16:33: no drng on old drsg, inc well approx, no s/s of infection Original Note: drsg to back incision changed, pt had shower. removed old 4x4 gauze and applied ABD secured with little tape
[2019-10-14] MEDS: Ascorbic Acid 500 MG Tablet PO (08:10)
[2019-10-14] MEDS: Calcium Carb/Vitamin D 1 TABLET Tablet PO (08:11)
[2019-10-14] MEDS: Multivitamins,Therapeutic Tablet 1 TABLET PO (08:11)
--- NOTE | 2019-10-14 10:45 | NURSING ---
field artillery targeting technician reported dopper negative for DVTs
[2019-10-14 13:53] VITALS: BP 118/59; PULSE 79; RESP 16; TEMP 37; O2SAT 97
--- NOTE | 2019-10-14 14:10 | PCM.PN.RX ---
<Carey Cabrera - Last Filed: 10/14/19 14:10> Progress Note - Pharmacy Subjective: TCU Admission Objective: Allergies codeine Adverse Reaction (Verified 08/06/19 10:45) Upset Stomach Current Medications Generic Name Dose Route Start Last Admin Trade Name Freq PRN Reason Stop Dose Admin Acetaminophen 650 mg 10/11/19 14:24 10/14/19 05:36 Tylenol PO 650 mg Q4H PRN PRN Administration Pain Score 1-5/10 Ascorbic Acid 500 mg 10/12/19 08:00 10/14/19 08:10 Vitamin C PO 500 mg DAILYCM [facility] Administration Bisacodyl 10 mg 10/11/19 14:24 Dulcolax RECTAL DAILY PRN PRN Constipation Calcium/Vitamin D 1 tablet 10/12/19 08:00 10/14/19 08:11 Os-Rhett 500mg + D [facility] Docusate Sodium 100 mg 10/11/19 18:00 10/14/19 05:36 Colace PO 100 mg BID [facility] Administration Enoxaparin Sodium 40 mg 10/12/19 06:00 10/14/19 05:36 Lovenox SC 40 mg DAILY@0600 [facility] Administration Menthol 1 applic 10/11/19 14:27 Bengay Vanishing Scent TOPICAL TID PRN PRN Pain Score 1-10/10 Multivitamins 1 tablet 10/12/19 08:00 10/14/19 08:11 Multivitamin PO 1 tablet DAILY@0800 [facility] Administration Oxycodone HCl 5 mg 10/11/19 15:40 10/14/19 12:19 Oxyir PO 5 mg Q4H PRN Administration Pain Score 6-10/10 Polyethylene Glycol 17 gm 10/12/19 06:00 10/14/19 05:36 Miralax PO 17 gm DAILY [facility] Administration Senna 1 tablet 10/11/19 14:56 Senokot PO BID PRN PRN CONSTIPATION Tuberculin PPD 5 tu 10/19/19 10:00 Tubersol, Aplisol, Ppd ID 10/19/19 10:01 X1 ONE Problem List (Last Reviewed 10/26/17 @ 09:13 by Rosario Marshall) Debility (Acute) Lumbar radiculopathy (Acute) Vital Signs Temp Pulse Resp BP Pulse Ox 98.6 F 79 16 118/59 L 97 10/14/19 13:53 10/14/19 13:53 10/14/19 13:53 10/14/19 13:53 10/14/19 13:53 Oxygen Delivery Method Room Air Weight: 82.1 kg Body Mass Index (BMI) 32.1 Sodium 138 mmol/L (136-145) 10/12/19 08:26 Potassium 3.7 mmol/L (3.5-5.1) 10/12/19 08:26 Chloride 103 mmol/L (98-107) 10/12/19 08:26 Carbon Dioxide 26.0 mmol/L (21.0-32.0) 10/12/19 08:26 Anion Gap 9 (5-15) 10/12/19 08:26 BUN 8 mg/dL (7-18) 10/12/19 08:26 Creatinine 0.56 mg/dL (0.55-1.02) 10/12/19 08:26 Est GFR (MDRD) Af Amer 133 mL/min (>60) 10/12/19 08:26 Est GFR (MDRD) Non-Af 110 mL/min (>60) 10/12/19 08:26 BUN/Creatinine Ratio 14.2 RATIO (10-20) 10/12/19 08:26 Glucose 129 mg/dL (74-106) H 10/12/19 08:26 Assessment/Plan: *1. Pain: acetaminophen 650mg PO Q4H PRN pain (1-5/10), oxycodone 5mg PO Q4H PRN pain (6-10/10) and menthol cream 1 application topically TID PRN pain (1-10/10). Patient has been receiving acetaminophen and oxycodone regularly. Please consider changing acetaminophen to 1000mg PO Q4H to help decrease need for oxycodone. Thanks. Please continue to monitor for increased pain, constipation and respiratory depression. 2. DVT prophylaxis: enoxaparin 40mg SC daily. Please continue to monitor for S/S bleeding/DVT, renal function, and platelets. 3. Vitamin C deficiency: ascorbic acid 500mg PO DAILYCM. Please continue to monitor. *4. Calcium deficiency: calcium/vitamin D 1T PO DAILYCM. Please consider ordering a Vitamin D level now and then annually as clinically appropriate. Thanks. 5. Overall nutrition: multivitamin 1T PO DAILYCM. Please continue to monitor. Psychotropic Medications: None Unnecessary Medications: None *Bowel Regimen: Miralax 17gm PO daily, docusate 100mg PO BID, senna 1T PO BID PRN constipation, bisacodyl 10mg [place] daily PRN constipation. Please continue to monitor for constipation and PRN usage. Patient has refused 5/6 doses of docusate. Please consider changing from scheduled to PRN if clinically appropriate. Thanks. Date of Note:: 10/14/19 - Provider Comments Provider responsibility: Provider responsible to enter orders to implement recommendations <Mark Muhammad Chi - Last Filed: 10/14/19 15:46> Progress Note - Pharmacy Subjective: [] Objective: Allergies codeine Adverse Reaction (Verified 08/06/19 10:45) Upset Stomach Current Medications Generic Name Dose Route Start Last Admin Trade Name Freq PRN Reason Stop Dose Admin Acetaminophen 650 mg 10/11/19 14:24 10/14/19 15:06 Tylenol PO 650 mg Q4H PRN PRN Administration Pain Score 1-5/10 Ascorbic Acid 500 mg 10/12/19 08:00 10/14/19 08:10 Vitamin C PO 500 mg DAILYCM [facility] Administration Bisacodyl 10 mg 10/11/19 14:24 Dulcolax RECTAL DAILY PRN PRN Constipation Calcium/Vitamin D 1 tablet 10/12/19 08:00 10/14/19 08:11 Os-Rhett 500mg + D PO 1 tablet DAILYCM [facility] Administration Docusate Sodium 100 mg 10/11/19 18:00 10/14/19 05:36 Colace PO 100 mg BID [facility] Administration Enoxaparin Sodium 40 mg 10/12/19 06:00 10/14/19 05:36 Lovenox SC 40 mg DAILY@0600 [facility] Administration Menthol 1 applic 10/11/19 14:27 Bengay Vanishing Scent TOPICAL TID PRN PRN Pain Score 1-10/10 Multivitamins 1 tablet 10/12/19 08:00 10/14/19 08:11 Multivitamin PO 1 tablet DAILY@0800 [facility] Administration Oxycodone HCl 5 mg 10/11/19 15:40 10/14/19 12:19 Oxyir PO 5 mg Q4H PRN Administration Pain Score 6-10/10 Polyethylene Glycol 17 gm 10/12/19 06:00 10/14/19 05:36 Miralax PO 17 gm DAILY [facility] Administration Senna 1 tablet 10/11/19 14:56 Senokot PO BID PRN PRN CONSTIPATION Tuberculin PPD 5 tu 10/19/19 10:00 Tubersol, Aplisol, Ppd ID 10/19/19 10:01 X1 ONE Problem List (Last Reviewed 10/26/17 @ 09:13 by Rosario Marshall) Debility (Acute) Lumbar radiculopathy (Acute) Vital Signs Temp Pulse Resp BP Pulse Ox 98.6 F 79 16 118/59 L 97 10/14/19 13:53 10/14/19 13:53 10/14/19 13:53 10/14/19 13:53 10/14/19 13:53 Oxygen Delivery Method Room Air Weight: 82.1 kg Body Mass Index (BMI) 32.1 Sodium 138 mmol/L (136-145) 10/12/19 08:26 Potassium 3.7 mmol/L (3.5-5.1) 10/12/19 08:26 Chloride 103 mmol/L (98-107) 10/12/19 08:26 Carbon Dioxide 26.0 mmol/L (21.0-32.0) 10/12/19 08:26 Anion Gap 9 (5-15) 10/12/19 08:26 BUN 8 mg/dL (7-18) 10/12/19 08:26 Creatinine 0.56 mg/dL (0.55-1.02) 10/12/19 08:26 Est GFR (MDRD) Af Amer 133 mL/min (>60) 10/12/19 08:26 Est GFR (MDRD) Non-Af 110 mL/min (>60) 10/12/19 08:26 BUN/Creatinine Ratio 14.2 RATIO (10-20) 10/12/19 08:26 Glucose 129 mg/dL (74-106) H 10/12/19 08:26 Assessment/Plan: Psychotropic Medications: Unnecessary Medications: Bowel Regimen: - Provider Comments Provider responsibility: Provider responsible to enter orders to implement recommendations Provider Comments to Recommendations by Pharmacy: Agree
--- NOTE | 2019-10-14 22:15 | NURSING ---
Addendum entered by Kaye Garner 10/15/19 06:55: Pt softly snoring at this time. Addendum entered by Kaye Garner 10/15/19 06:17: Pt complaint of leg hurting again. Stating the Tylenol and Oxy was helping but now not so sure now. Rating pain 7/10 and requesting to talk to Dr. Muhammad when he comes in. PRN Oxy given per pt request. Pt stating yesterday was the most extensive therapy session she has had since surgery. Pt stating she understands that it plays a factor but would like to talk to Dr. Muhammad. Informed pt that he would be notified. Reminded pt that she is just a standby assist with transferring which is good. Pt thanked this nurse. Pt resting in bed, polar care on and call light in reach. Addendum entered by Vanessa Collado 10/15/19 04:52: at 0400 scheduled tylenol pt mentioned feeling like pain is decreasing, and being managed now. RN notified. Original Note: Pt complaint about pain medications. This nurse into talk to pt. Pt began to yell at this nurse stating I was warned about this happening here and my pain is not under control like it was!. Pt continuously yelling at this nurse about pain medications being messed up since admission. Pt visibly upset. This nurse attempted to explain to pt that Tylenol was changed to Q4WA schedules to help control pain. Pt still yelling at this nurse that it is not how she was taking it at the other hospital. This nurse simply asked pt what times she would want her pain meds given. Pt stating I should be receiving either Tylenol or Oxy Q2.5 hours alternating. Pt upset that she has to ask for pain medications and does not always have the time to think about it. Dr. Muhammad updated on pt being very upset and wanting orders changed. New order Tylenol 650mg Q4hrs scheduled and to keep the Oxy the same. Pt updated. Educated pt that she received Oxy at 2200. Scheduled Tylenol would start at 0000. She could receive Oxy again at 0200 if needed. Then she would receive a scheduled dose of Tylenol again at 0400. Pt in agreement with above schedule. Pt stated to just be frustrated with pain not being controlled and over doing it in therapy today. Polar care in place. This nurse educated pt that we are here to help patient get better to go home. Pt thanked this nurse and apologized. Pt denied any further needs at this time. Pt resting in bed with call light in reach.
[2019-10-15] MEDS: Acetaminophen 325 MG Tablet 650 MG PO ×6 (00:03→20:02)
[2019-10-15] MEDS: oxyCODONE 5 MG Tablet PO ×6 (02:04→22:29)
[2019-10-15] MEDS: Polyethylene Glycol 3350 17 GM PACKET PO (06:03)
[2019-10-15] MEDS: Enoxaparin 40 MG/0.4 ML Syringe SC (06:04)
[2019-10-15] MEDS: Calcium Carb/Vitamin D 1 TABLET Tablet PO (08:14)
[2019-10-15] MEDS: Multivitamins,Therapeutic Tablet 1 TABLET PO (08:14)
[2019-10-15] MEDS: Ascorbic Acid 500 MG Tablet PO (08:14)
[2019-10-15] MEDS: MethylPREDNISolone DosePak 4 MG BOX PO ×4 (08:17→22:30)
--- NOTE | 2019-10-15 08:24 | NURSING ---
Dr Muhammad updated on pt d/t pt feeling her pain not controlled per night auditor report. this nurse discussed pain with pt this AM and updated her that dr muhammad is started medrol dose ellen and that this should help with the dull pain that she is having down her Lt leg, starts in her buttocks and works its way down. she states that before surgery it was nerve pain down the rt leg and that pain is gone since surgery. explained to pt that it is still early out of surgery and that she is doing therapy and she will have some pain. pt verbalized understanding and felt once the tylenol was scheduled and given to her at 4 am that pain had improved. she set her clock on her phone to remind her to call for oxyir at 10am. last dose was given at 6am. will continue to monitor pain med effectiveness. rating pain 3/10 dull to lt leg/thigh. scheduled tylenol given along with medrol dose ellen.
[2019-10-15 14:23] VITALS: BP 142/72; PULSE 77; RESP 16; TEMP 36.7; O2SAT 99
[2019-10-15 20:06] VITALS: RESP 18
[2019-10-16] MEDS: Acetaminophen 325 MG Tablet 650 MG PO ×6 (00:08→20:03)
[2019-10-16] MEDS: oxyCODONE 5 MG Tablet PO ×6 (02:32→22:05)
[2019-10-16] MEDS: Polyethylene Glycol 3350 17 GM PACKET PO (06:20)
[2019-10-16] MEDS: Enoxaparin 40 MG/0.4 ML Syringe SC (06:20)
[2019-10-16] MEDS: Calcium Carb/Vitamin D 1 TABLET Tablet PO (08:20)
[2019-10-16] MEDS: MethylPREDNISolone DosePak 4 MG BOX PO ×4 (08:20→20:01)
[2019-10-16] MEDS: Multivitamins,Therapeutic Tablet 1 TABLET PO (08:20)
[2019-10-16] MEDS: Ascorbic Acid 500 MG Tablet PO (08:21)
--- NOTE | 2019-10-16 10:16 | CASEMGMT ---
Social Work IDT met with patient for care plan meeting. Discussed patient's progress in therapy. Pt is mod. I for all ADLs, adlib in room, walking 280 ft with FWW, completed 5 steps with 2 HR SBA. Pt has first floor set up and has friends to support pt while is at work. Pt has f/u appt with physician to get rajni removed 10/22, possible DC 10/23. Explained Medicare benefit. Will continue to follow. KOTA DialW
[2019-10-16 14:58] VITALS: BP 162/72; PULSE 79; RESP 16; TEMP 36.7; O2SAT 97
[2019-10-17] MEDS: Acetaminophen 325 MG Tablet 650 MG PO ×6 (00:09→20:04)
[2019-10-17] MEDS: oxyCODONE 5 MG Tablet PO ×5 (02:06→20:01)
[2019-10-17] MEDS: Polyethylene Glycol 3350 17 GM PACKET PO (04:06)
[2019-10-17] MEDS: Enoxaparin 40 MG/0.4 ML Syringe SC (04:06)
[2019-10-17] MEDS: Multivitamins,Therapeutic Tablet 1 TABLET PO (08:38)
[2019-10-17] MEDS: Calcium Carb/Vitamin D 1 TABLET Tablet PO (08:38)
[2019-10-17] MEDS: Ascorbic Acid 500 MG Tablet PO (08:38)
[2019-10-17] MEDS: MethylPREDNISolone DosePak 4 MG BOX PO ×4 (08:39→20:02)
--- NOTE | 2019-10-17 09:56 | MDS.RN ---
Pain interview for heriberto 10/18/19 completed.
[2019-10-17 16:00] VITALS: BP 140/70; PULSE 78; RESP 16; TEMP 36.7; O2SAT 99
[2019-10-18] MEDS: Acetaminophen 325 MG Tablet 650 MG PO ×6 (00:12→20:36)
[2019-10-18] MEDS: oxyCODONE 5 MG Tablet PO ×5 (01:09→21:59)
[2019-10-18] MEDS: Enoxaparin 40 MG/0.4 ML Syringe SC (04:10)
[2019-10-18] MEDS: Polyethylene Glycol 3350 17 GM PACKET PO (04:10)
[2019-10-18] MEDS: Calcium Carb/Vitamin D 1 TABLET Tablet PO (08:17)
[2019-10-18] MEDS: MethylPREDNISolone DosePak 4 MG BOX PO ×3 (08:17→20:26)
[2019-10-18] MEDS: Multivitamins,Therapeutic Tablet 1 TABLET PO (08:17)
[2019-10-18] MEDS: Ascorbic Acid 500 MG Tablet PO (08:18)
--- NOTE | 2019-10-18 12:05 | CASEMGMT ---
Social Work Reviewed and agreed with social work tax services intern documentation on this date. Rachael Lisa, LOADMASTER PAINT CREW SUPERVISOR
[2019-10-18 16:00] VITALS: BP 132/66; PULSE 65; RESP 18; TEMP 36.9; O2SAT 94
[2019-10-19] MEDS: oxyCODONE 5 MG Tablet PO ×4 (02:30→22:32)
[2019-10-19] MEDS: Acetaminophen 325 MG Tablet 650 MG PO ×5 (04:18→20:18)
[2019-10-19] MEDS: Enoxaparin 40 MG/0.4 ML Syringe SC (06:47)
[2019-10-19 07:36] LABS: Absolute Lymphocyte Count 2.85 X10^3/uL (0.83-4.51); Absolute Neutrophil Count 4.2 X10^3/uL (2.0-7.7); Basophil# 0.06 X10^3/uL; Basophil% 0.8 % (0-1); Eosinophils% 1.3 % (0-5); Hematocrit 38.5 % (37-47); Hemoglobin 12.5 g/dL (12.0-15.0); Lymphocyte # 2.85 X10^3/ul (4.0); Lymphocyte % 36.6 % (19-41); Mean Corp Hgb Conc 32.5 g/dL (32-36); Mean Corpuscular Hgb 29.9 pg (27.0-32.0); Mean Corpuscular Volume 92.1 fL (81-99); Mean Platelet Vol. 8.8 fl (6.2-12.0); Monocyte# 0.56 X10^3/uL; Monocyte% 7.2 % (0-10); NRBC Flagged by Analyzer 0 % (0-5); Neutrophil # 4.19 X10^3/uL (2.7-7.7); Neutrophil % 53.8 % (47-70); Platelet Count 430 K/mm3 (150-450); RBC Distribution Width CV 11.9 % (11.6-14.6); RBC Distribution Width SD 39.7 fl (35.1-43.9); Red Blood Count 4.18 M/mm3 (4.2-5.4); White Blood Count 7.8 K/mm3 (4.4-11.0)
[2019-10-19 07:47] LABS: Anion Gap 4 (5-15); BUN 16 mg/dL (7-18); BUN/Creat Ratio 19.2 RATIO (10-20); Calcium,Total 9.7 mg/dL (8.5-10.1); Chloride 104 mmol/L (98-107); Creatinine, Serum 0.83 mg/dL (0.55-1.02); EST Glomerular Filtration Rate 70 mL/min (>60); Est Glom Filt Rate - Afr Amer 85 mL/min (>60); Estimated Creatinine Clearance 45.46 ml/min; Glucose 93 mg/dL (74-106); Potassium 3.8 mmol/L (3.5-5.1); Sodium Level 138 mmol/L (136-145)
[2019-10-19] MEDS: MethylPREDNISolone DosePak 4 MG BOX PO ×2 (08:24→20:18)
[2019-10-19] MEDS: Multivitamins,Therapeutic Tablet 1 TABLET PO (08:24)
[2019-10-19] MEDS: Ascorbic Acid 500 MG Tablet PO (08:24)
[2019-10-19] MEDS: Calcium Carb/Vitamin D 1 TABLET Tablet PO (08:24)
[2019-10-19] MEDS: Tuberculin,Purif.prot.deriv. 50 TU/ML Vial 5 ML ID (11:08)
[2019-10-19 14:13] VITALS: BP 147/69; PULSE 84; RESP 20; TEMP 36.4; O2SAT 97
[2019-10-20] MEDS: Acetaminophen 325 MG Tablet 650 MG PO ×6 (00:15→20:33)
[2019-10-20] MEDS: oxyCODONE 5 MG Tablet PO ×4 (02:30→21:56)
[2019-10-20] MEDS: Enoxaparin 40 MG/0.4 ML Syringe SC (06:14)
[2019-10-20] MEDS: Ascorbic Acid 500 MG Tablet PO (08:03)
[2019-10-20] MEDS: Calcium Carb/Vitamin D 1 TABLET Tablet PO (08:03)
[2019-10-20] MEDS: Multivitamins,Therapeutic Tablet 1 TABLET PO (08:03)
[2019-10-20] MEDS: MethylPREDNISolone DosePak 4 MG BOX PO (08:03)
[2019-10-20 15:02] VITALS: BP 138/65; PULSE 66; RESP 16; TEMP 36.6; O2SAT 94
[2019-10-21] MEDS: Acetaminophen 325 MG Tablet 650 MG PO ×5 (00:16→21:21)
[2019-10-21] MEDS: oxyCODONE 5 MG Tablet PO ×5 (02:02→20:28)
[2019-10-21] MEDS: Enoxaparin 40 MG/0.4 ML Syringe SC (06:12)
[2019-10-21] MEDS: Calcium Carb/Vitamin D 1 TABLET Tablet PO (08:21)
[2019-10-21] MEDS: Multivitamins,Therapeutic Tablet 1 TABLET PO (08:21)
[2019-10-21] MEDS: Ascorbic Acid 500 MG Tablet PO (08:21)
--- NOTE | 2019-10-21 12:34 | CASEMGMT ---
Social Work Met with pt to discuss request to DC home with 10/23. Discussed with pt appointment in [place] tomorrow, nursing to get paperwork before leaving. No DME needs. Pt requesting [facility] for PT/OT. Plan: DC home with 10/23, NO DME needs, [facility] PT/OT Marli Singh, social work digital intern Rachael Lisa, STUDIO CONTROL OPERATOR POST FRAMER
[2019-10-21 14:22] VITALS: BP 128/68; PULSE 72; RESP 16; TEMP 36.4; O2SAT 98
--- NOTE | 2019-10-21 15:50 | CASEMGMT ---
Social Work Reviewed and agreed with social work qa intern documentation on this date. Rachael Lisa, WELL TESTING OPERATOR ANIMAL SKINNER
--- NOTE | 2019-10-21 19:29 | DCINST_ITS ---
- Discharge Diagnoses Current Active Problems: Current Active and Chronic Problems (Last Reviewed 10/26/17 @ 09:13 by Rosario Marshall) Debility (Acute) Lumbar radiculopathy (Acute) You will use the following diet at home:: No restrictions, Regular Your food should be the consistency of: Regular Your liquids should be the consistency of: Regular/Thin Discharge Activity: Return to Normal Activity, May Shower, Use Walker Weight Bearing Status: Weight bearing as tolerated Call your doctor if you observe: Fever of 101 or Higher, Inability to urinate, Inability to have a bowel movement, Shortness of breath, Chest pain, Uncontrolled pain Allergies/Adverse Reactions: Allergies codeine Adverse Reaction (Verified 08/06/19 10:45) Upset Stomach Medications to take at Discharge multivitamin 1 tab PO QAM 10/19/17 Acetaminophen 650 mg PO Q4H PRN PRN 10/11/19 Ascorbic Acid 500 mg PO DAILY 10/11/19 Calcium Carbonate/Vitamin D3 [Calcium 500-Vit D3 200 Tablet] 1 ea PO DAILY 10/11/19 Glucos Sul 2Kcl/MSM/Chond/C/Mn [Glucosamine Chondroitin Cap] 1 ea PO DAILY 10/11/19 Sennosides [Senna] 8.6 mg PO BID PRN PRN 10/11/19 Docusate Sodium 100 mg PO BID #60 cap 10/21/19 Menthol [Bengay Vanishing Scent] 1 applic TOPICAL TID PRN PRN tube 10/21/19 Oxycodone [Oxyir] 5 mg PO Q4H PRN 7 Days #42 tablet 10/21/19 Polyethylene Glycol 3350 [Miralax] 17 gm PO DAILY #30 packet 10/21/19 The following prescriptions were given: Docusate Sodium 100 mg PO BID #60 cap Transmission Status: Pending to [facility] [address] Polyethylene Glycol 3350 [Miralax] 17 gm PO DAILY #30 packet Transmission Status: Pending to [facility] [address] Oxycodone [Oxyir] 5 mg PO Q4H PRN 7 Days #42 tablet PRN Reason: Pain Score 6-10/10 Transmission Status: Received by [facility] [address] Primary Care Physician: Curtis Bianchi MD [Primary Care Provider] - Please follow up with your Primary Care Physician in: 1 week. Test Results: Test results from this visit will be discussed in further detail at your follow- up appointment, if applicable. Please Follow Up With: aSima May: As scheduled. Proposed Discharge Date: 10/23/19
--- NOTE | 2019-10-21 19:31 | DS.PCM_ITS ---
Discharge Date and Diagnosis - Problem List Patient Problems: Active and Suspected Problems (Last Reviewed 10/26/17 @ 09:13 by Rosario Marshall) Debility (Acute) Lumbar radiculopathy (Acute) Date of Admission: 10/11/19 Date of Discharge: 10/23/19 - Primary Discharge Diagnosis Active and Suspected Problems (Last Reviewed 10/26/17 @ 09:13 by Rosario Marshall) Debility (Acute) Lumbar radiculopathy (Acute) Hospital Course and Treatment Imaging Results: 10/11/19 15:05 Diet: Regular Diet Is pt able to select menu?: Yes Operations: None Procedures: None Summary of Care Provided: The patient is a 79 year old Female with below past medical history significant for right L4, L5 radiculopathy, underwent L4-S1 laminectomy with instrumented fusion 10/07/[address] Kumari, admitted to TCU with debility, here for rehabilitation, strengthening, prior to discharge home with . Discharge home with , [facility] PT/OT, no DME needs. Patient Problems: Active and Suspected Problems (Last Reviewed 10/26/17 @ 09:13 by Rosario Marshall) Debility (Acute) Lumbar radiculopathy (Acute) - Physical Exam Vitals/I&O's: Vital Signs Temp Pulse Resp BP Pulse Ox 97.6 F L 72 16 128/68 H 98 10/21/19 14:22 10/21/19 14:22 10/21/19 14:22 10/21/19 14:22 10/21/19 14:22 Oxygen Delivery Method Room Air Weight: 81.448 kg Body Mass Index (BMI) 32.1 Intake and Output for Last 24 Hours 10/19/19 10/20/19 10/21/19 23:59 23:59 23:59 Intake Total 480 / 480 360 / 360 600 / 600 Balance 480 / 480 360 / 360 600 / 600 Current Medications Acetaminophen (Tylenol) 650 mg PO Q4H REPLACED BY [facility] Last Admin: 10/21/19 16:45 Dose: 650 mg Documented by: Ascorbic Acid (Vitamin C) 500 mg PO DAILYCM REPLACED BY [facility] Last Admin: 10/21/19 08:21 Dose: 500 mg Documented by: Bisacodyl (Dulcolax) 10 mg RECTAL DAILY PRN PRN PRN Reason: Constipation Calcium/Vitamin D (Os-Rhett 500mg + D) 1 tablet PO DAILYCM REPLACED BY [facility] Last Admin: 10/21/19 08:21 Dose: 1 tablet Documented by: Docusate Sodium (Colace) 100 mg PO BID REPLACED BY [facility] Last Admin: 10/21/19 12:31 Dose: Not Given Documented by: Enoxaparin Sodium (Lovenox) 40 mg SC DAILY@0600 REPLACED BY [facility] Last Admin: 10/21/19 06:12 Dose: 40 mg Documented by: Menthol (Bengay Vanishing Scent) 1 applic TOPICAL TID PRN PRN PRN Reason: Pain Score 1-10/10 Multivitamins (Multivitamin) 1 tablet PO DAILY@0800 REPLACED BY [facility] Last Admin: 10/21/19 08:21 Dose: 1 tablet Documented by: Oxycodone HCl (Oxyir) 5 mg PO Q4H PRN PRN Reason: Pain Score 6-10/10 Last Admin: 10/21/19 14:51 Dose: 5 mg Documented by: Polyethylene Glycol (Miralax) 17 gm PO DAILY REPLACED BY [facility] Last Admin: 10/21/19 06:12 Dose: Not Given Documented by: Senna (Senokot) 1 tablet PO BID PRN PRN PRN Reason: CONSTIPATION Discharge Diet: No Restrictions Discharge Activity: Return to Normal Activity, May Shower, Use Walker Weight Bearing Status: Weight bearing as tolerated Call your doctor if you observe: Fever of 101 or Higher, Inability to urinate, Inability to have a bowel movement, Shortness of breath, Chest pain, Uncontrolled pain Home Medications: Medications to take at Discharge multivitamin 1 tab PO QAM 10/19/17 Acetaminophen 650 mg PO Q4H PRN PRN 10/11/19 Ascorbic Acid 500 mg PO DAILY 10/11/19 Calcium Carbonate/Vitamin D3 [Calcium 500-Vit D3 200 Tablet] 1 ea PO DAILY 10/11/19 Glucos Sul 2Kcl/MSM/Chond/C/Mn [Glucosamine Chondroitin Cap] 1 ea PO DAILY 10/11/19 Sennosides [Senna] 8.6 mg PO BID PRN PRN 10/11/19 Docusate Sodium 100 mg PO BID #60 cap 10/21/19 Menthol [Bengay Vanishing Scent] 1 applic TOPICAL TID PRN PRN tube 10/21/19 Oxycodone [Oxyir] 5 mg PO Q4H PRN 7 Days #42 tablet 10/21/19 Polyethylene Glycol 3350 [Miralax] 17 gm PO DAILY #30 packet 10/21/19 Following Prescrptions Were Given to Patient: Docusate Sodium 100 mg PO BID #60 cap Transmission Status: Pending to [address] Polyethylene Glycol 3350 [Miralax] 17 gm PO DAILY #30 packet Transmission Status: Pending to [address] Oxycodone [Oxyir] 5 mg PO Q4H PRN 7 Days #42 tablet PRN Reason: Pain Score 6-10/10 [facility] Status[facility] Primary Care Physician: Curtis Bianchi MD [Primary Care Provider] - Please follow up with your Primary Care Physician in: 1 week. Please Follow Up With: Saima May When: As scheduled. Disposition: Home Minutes spent on discharge:: 30 Patient Condition:: Good Medical Necessity - Tobacco Use Smoking Status: Never smoker Tobacco Use: Non-smoker Meaningful Use Info Meaningful Use Diagnoses (Choose all that apply): None applicable
[2019-10-22] MEDS: Acetaminophen 325 MG Tablet 650 MG PO ×6 (00:02→21:22)
[2019-10-22] MEDS: oxyCODONE 5 MG Tablet PO ×4 (01:03→22:32)
[2019-10-22] MEDS: Enoxaparin 40 MG/0.4 ML Syringe SC (05:42)
--- NOTE | 2019-10-22 07:43 | MDS.RN ---
Information for the mds was obtained from review of the clinical record, interview of resident, staff, and direct observation of resident's care.
[2019-10-22] MEDS: Multivitamins,Therapeutic Tablet 1 TABLET PO (08:21)
[2019-10-22] MEDS: Calcium Carb/Vitamin D 1 TABLET Tablet PO (08:21)
[2019-10-22] MEDS: Ascorbic Acid 500 MG Tablet PO (08:23)
--- NOTE | 2019-10-22 08:31 | NURSING ---
Addendum entered by Matt Lam 10/22/19 08:54: pt sent with 2 325mg tablets of tylenol for scheduled 1200 dose. oxycodone returned to accudose and pt instructed to stop by preferred pharmacy on way to appointment and utilize prescription written for d/c Original Note: pt going out to Dr. Cruz at 0900, given 2 doses of oxycodone (10mg) that could be taken at 1000 (5mg) and 1400 (5mg). pt instruction given
[2019-10-22 16:00] VITALS: BP 130/68; PULSE 71; RESP 18; TEMP 36.7; O2SAT 98
[2019-10-22] MEDS: Gabapentin 300 MG Capsule PO (20:28)
[2019-10-23] MEDS: Acetaminophen 325 MG Tablet 650 MG PO ×3 (00:24→09:11)
[2019-10-23] MEDS: oxyCODONE 5 MG Tablet PO ×2 (02:40→07:41)
[2019-10-23] MEDS: Enoxaparin 40 MG/0.4 ML Syringe SC (06:57)
--- NOTE | 2019-10-23 07:01 | NURSING ---
pt educated on giving Lovenox injection, educated on rotating sites, properly disposing of needle, and attempted on own. She needed a little help with getting the needle in otherwise it went well, all questions answered appropriately, denies further questions, pt resting comfortably in bed, call light in reach.
[2019-10-23] MEDS: Ascorbic Acid 500 MG Tablet PO (07:42)
[2019-10-23] MEDS: Multivitamins,Therapeutic Tablet 1 TABLET PO (07:42)
[2019-10-23] MEDS: Calcium Carb/Vitamin D 1 TABLET Tablet PO (07:42)
[2019-10-23 10:58] VITALS: BP 132/68; PULSE 74; RESP 16; TEMP 36.8; O2SAT 95
--- NOTE | 2019-10-24 12:43 | CASEMGMT ---
Social Work Reviewed and agreed with social work video production intern documentation on this date. Rachael Lisa, SUSTAINABILITY COMMUNICATOR BALLOON DESIGN PRINTER
== END 2019-10-23 10:15 | disposition home or self-care (01) | DRG 561 ==
PROVIDERS: Admitting Provider Family Medicine Geriatric Medicine; PCP Family Medicine; Referring Provider Family Medicine Geriatric Medicine; Visit Provider Family Medicine Geriatric Medicine
DX: Z47.89 Encounter for other orthopedic aftercare (principal); M54.16 Radiculopathy, lumbar region; M21.371 Foot drop, right foot; Z23 Encounter for immunization; M43.27 Fusion of spine, lumbosacral region
CPT/HCPCS: 36415; 80048; 85025; 90732; 93970; 97032; 97110; 97116; 97162; 97166; 97530; 97535; 97802; G0009

== ENCOUNTER → 2019-12-31 09:46 | Outpatient (CLI) | payer MEDICARE, OTHER, SELFPAY ==
--- NOTE | 2019-12-31 09:48 | RAD_ITS ---
STUDY: X-RAY - LUMBAR SPINE REASON FOR EXAM: Female, 79 years old. LBP after a fall, surgery was 3 months ago TECHNIQUE: AP and lateral view(s) of the lumbar spine were obtained. COMPARISON: Comparison is made with prior examination dated February 18, 2019. FINDINGS: Normal lumbar lordosis. There is no substantial scoliosis. There is a normal alignment of the vertebrae. The patient is status post laminectomy and interpedicular screw fixation at the L4-L5 and L5-S1 levels. There is multi-level degenerative disc disease with multi-level disc space narrowing. There is atherosclerotic calcification of the abdominal aorta without a demonstrated aneurysm. RAD/Lumbar Spine 2 or 3 Views IMPRESSION: Status post fusion at the L4-L5 and L5-S1 levels. There is good alignment. Degenerative changes. Electronically Signed: Anmol Pandya, at 10:33 EDT , Service support ,
[2020-02-10 14:45] VITALS: BMI 32.1
== END ==
PROVIDERS: PCP Family Medicine; Referring Provider Orthopaedic Surgery; Visit Provider Orthopaedic Surgery
DX: M54.16 Radiculopathy, lumbar region (principal)
CPT/HCPCS: 72100

== ENCOUNTER → 2020-02-10 14:41 | Outpatient (CLI) | payer MEDICARE, OTHER, SELFPAY ==
[2019-12-31 16:00] VITALS: BMI 32.1
--- NOTE | 2020-02-10 14:42 | RAD_ITS ---
STUDY: X-RAY - LEFT KNEE REASON FOR EXAM: Female, 79 years old. PAIN AND SWELLING S/P FALL TECHNIQUE: 4 view(s) of the knee. COMPARISON: Comparison is made with prior examination April 19, 2016. FINDINGS: Normal visualized distal femur. Normal visualized proximal tibia and fibula. Normal proximal tibiofibular articulation. There is moderate degenerative arthrosis of the medial femorotibial compartment with moderate joint space narrowing. There is moderate degenerative arthrosis of the lateral femorotibial compartment with moderate joint space narrowing. There is mild degenerative arthrosis of the patellofemoral articulation. Minimal joint effusion. RAD/Knee 4 or More Views IMPRESSION: Degenerative arthrosis. This has progressed as compared to prior study. Electronically Signed: Anmol Pandya, at 15:36 EDT , Service support ,
== END ==
PROVIDERS: PCP Family Medicine; Referring Provider Physician Assistant; Visit Provider Physician Assistant
DX: M25.562 Pain in left knee (principal)
CPT/HCPCS: 73564

== ENCOUNTER 2020-05-01 08:30 | Outpatient (RCR) | payer MEDICARE, OTHER, SELFPAY ==
--- NOTE | 2019-11-01 10:02 | HP.PTEVAL ---
Patient's Visit Information RADHA LING is a 79 year old F referred to Physical Therapy by Mark Muhammad MD with a diagnosis of Debility lumbar radicuopathy post surgery fusion. Date of Evaluation: 11/01/19 Physical Therapist: Arun Rees, DPT, OCS, CSCS - Visit Plan Frequency: 3x /Week Duration: 4-6 Weeks Plan: 3x/week for 3-6 weeks for... isometric core strength. UE and LE strength. Strech HS quads and gastroc. postural body mechanics focus. R DF strength and FES to R DF each viit please. - Subjective Findings: Had 6 screws adn a jailyn in LB 10/07. Doctor wants her using a walker until f/u to avoid falling. R leg pain is now gone. L leg hurts a little but it is liekly temporary. Taking 3 oxy per day and will wean off to one by check up 11/12. Needs to use walker 90 days. R eg pain gone. Has surgical LBP worse with doing too much. Uses ice man machine as needed. Currently no back apin except L leg pain 04/06 a t night gone with ice man. Spent a couple weeks in TCU at hospital. Precautions: No bending lifting or twisting. Sleeping is OK now, was tough for a while. Uses wh walker to get around under doctors orders. Not doing much at home adn feels tired early. Has not started exercises at home yet other than in TCU. Dressing adn shoes are OK, has long shoe horn. 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 Can do laundry. Lives with and has made changes at home to avoid bending and twisting. Wants drop foot gone, Wants to be on feet alot without discomfort. - Pain L lB and leg Pain Intensity (Out of 10): 0 Pain Intensity Range: 0, 8 - Objective Walks with wh walker I safely. Trasnfers to adn fro sit I, to and fro supine I, needs cues to roll to side adn sit from sidelying vs straight up. steps reciprocal with 2 rails today. I gait today without wh walker but R foot slap more prominent. No LOB or tripping. Posture is fair although tends flex upper thoracic spine. Incision is LB and dry and no signs of redness or heat or swelling. Slight dry scap proximally. HS and quads mod tight at -30 90/90 test but - slump and SLR today B. Gastrocs tight at O passive Df. Strength R DF 11#, L 25#, otherwise inv and evversion are 4- R and 4 L. PF 4- B. knee flexion and ext 4- B, hip strength 3+ flexion, abd and ext without pain B. L/S ROM not tested today. reflexes 1/3 patella and achilles B. Sensation WNl to gross light touch in LE. - Balance Scores Functional Gait Assessment Score: 23 % Disability: 23.3400 - Goals Goal 1:: 15# R DF strengtha dn walk without foot slap Goal Time Frame: 4-6 Weeks Goal 2:: Pt return to pre surgical exercises as allowed by limitations including seeing eye dog trainer Goal Time Frame: 4-6 Weeks Goal 3:: Pt feel 100% back to pre surgical acticvity level Goal Time Frame: 4-6 Weeks Goal 4:: <10% back oswestry score disabiliity Goal Time Frame: 4-6 Weeks - Rehabilitation Potential Physical Therapy Diagnosis: Debility after recent surgery. Rehabilitation Potential: Fair - Anticipated Interventions Patient/Client Instruction: Educate patient on: Condition, Plan of Care For the Purpose of:: To decrease pain, To improve muscle performance and motor function, To increase tolerance to activity/condition/position, To improve ability of physical actions for home/community/work/leisure, To improve gait and locomotor functions Therapeutic Exercise to Include: Strength training, Postural training, Flexibilty training, Gait and locomotor training, Passive ROM, Active ROM For the Purpose of:: To decrease pain, To improve nutrient delivery to tissue, To improve muscle performance and motor function, To increase tolerance to activity/condition/position, To improve ability of physical actions for home/community/work/leisure, To improve gait and locomotor functions Cryotherapy (ice pack, ice massage): Yes For the Purpose of:: To decrease swelling/inflammation Thank you for the opportunity to evaluate your patient. For Medicare and Medicare HMO plans, please review the plan of care and approve it. It will need to be FAXED BACK to us at [phone] for Medicare purposes. For Medicare only, by signing this I certify the plan of care. Please let me know if there are questions or concerns regarding this plan of care. Physician Signature: Date:
--- NOTE | 2019-11-22 10:33 | HP.PTREVAL ---
Mark Muhammad MD, It has been my pleasure to treat RADHA LING over the last 10 visits for Debility lumbar radicuopathy post surgery fusion. Please see the progress note below for an update on the physical therapy plan of care! Subjective: Walked at [facility] with yesterday and walked 2 miles slowly. Got B leg muscle soreness, didn't mean to walk that far. L leg nerve pain 3/10 and mostly at night. Back is not hurting and R leg not painful. Getting stronger. Paid for 2 mile walk and needed to sit. R foot seems straighter, Plans to walk 1/2 mile to one mile herself. Sleeping is OK sometimes, not usually due to pain but sometimes L leg hurts and needs to take tylenol. Not taking much gabapentin anymore. Cancel f/u with doctor due to virus and not rescheduling yet. Excited that she can move big toe up and down, could not do that before. Objective/Function: R big toe moving up and down, R ankle measuring 11# but feels stronger to patient. still has some foot slap with walking but decent R heel strike adn toe off for first 200 feet of walking. steps are reciprocal with some obvious R weakness eccentrically. balance improving. OVERALL GOOD PROGRESSION WITH STRENGTHA DN FUNCTION, STILL NOT ABLE TO BEND fw AND bw, DOCTOR ORDERS OR TWIST. APPROPRIATE TO COTNINUE WITH FAIR PROGNOSIS. Plan Plan: 3X/WEEK FOR 3 WEEKS FOR. 1. GET I WITH GYM EX. 2. CONTINUE ANKLE STRENGTH AND GAIT/BALANCE. 3. PROGRES WALKING PROGRAM AT HOME. cONTINUE ANKLE STIM FOR DF. 4. eNSURE GENTLE lb rom IN nwb. Goals Goal 1:: 15# R DF strengtha dn walk without foot slap Goal Time Frame: 4-6 Weeks Goal Progress: FEELS STRONGER, NOT MET Goal 2:: Pt return to pre surgical exercises as allowed by limitations including resident athletic trainer Goal Time Frame: 4-6 Weeks Goal Progress: Progressing Goal 3:: Pt feel 100% back to pre surgical acticvity level Goal Time Frame: 4-6 Weeks Goal Progress: 50% PROGRESS, APPROP Goal 4:: <10% back oswestry score disabiliity Goal Time Frame: 4-6 Weeks Goal Progress: Progressing Goal 5:: i APPROP GYM BASED EX FOR STRENGTH Goal Time Frame: 2-4 Weeks Goal Progress: new goal Anticipated Interventions Patient/Client Instruction: Educate patient on: Condition, Plan of Care For the Purpose of:: To decrease pain, To improve muscle performance and motor function, To increase tolerance to activity/condition/position, To improve ability of physical actions for home/community/work/leisure, To improve gait and locomotor functions Therapeutic Exercise to Include: Strength training, Postural training, Flexibilty training, Gait and locomotor training, Passive ROM, Active ROM For the Purpose of:: To decrease pain, To improve nutrient delivery to tissue, To improve muscle performance and motor function, To increase tolerance to activity/condition/position, To improve ability of physical actions for home/community/work/leisure, To improve gait and locomotor functions Cryotherapy (ice pack, ice massage): Yes For the Purpose of:: To decrease swelling/inflammation Please do not hesitate to contact me at [phone] by phone or if you have questions or concerns regarding this new plan of care! Sincerely, Arun Rees, DPT, OCS, CSCS
--- NOTE | 2019-12-16 09:45 | HP.PTREVAL ---
Dr. Curtis Bianchi MD, It has been my pleasure to treat RADHA LING over the last 20 visits for Debility lumbar radicuopathy post surgery fusion. Please see the progress note below for an update on the physical therapy plan of care! Subjective: Doing well. Willing to try gym ex on own today with my distant input. Objective/Function: gym exercises done without direct input today to prove she can do it. Hold on back ext due to sore with this ex. Needed assist on hip flexion machine. Held back machine due to it creating soreness today. Walking well today but slow. Steps require UE assist but did 3 flights and had a little R LE weakness on the last step requiring assist of UE. No toe catches or LOB otherwise today. 9.8# DF strenght R with knee bent and 15# with it straight. LB AROM ext 20 degrees, flexion 25, SB 20 L and 18 R. OVERALL DOING WELL WITH PAIN AND STRENGTH IMPROVEMENTS ALTHOUGHT DF R IS SLOW IF AT ALL. STILL HAS SOME FUNCTIONAL WEAKNESS AND DEFICITS THAT WOULD LIKE TO IMPROVE WITH TRANSFER OFF FLOOR, STEPSS, GAIT SPEED AND OUTDOOR WALKING. Plan Plan: Pt to do gym exercises I before session or after and copy given today except hip flexion machine which she still needs some help setting up. 3X/WEEK FOR 3 WEEKS, PT TO DO GYM EX I. IN CLINIC SKILLED TIME PLEASE FOCUS ON HIP FLEXOR STRENGTH, STEPS, OUTDOOR AMBULATION AND AMBULATION WITH CHALLENGES AND INCREASED SPEED ADN CONTINUE DF FES/STRENGTH. FAIR PROGNOSIS TO CONTINUE IMPROVMEENT AND MEET GOALS. Goals Goal 1:: 15# R DF strengtha dn walk without foot slap Goal Time Frame: 4-6 Weeks Goal Progress: [place]KNEE STRAIGHT. Goal 2:: Pt return to pre surgical exercises as allowed by limitations including call center trainer Goal Time Frame: 4-6 Weeks Goal Progress: Goal Met, GYM Goal 3:: Pt feel 100% back to pre surgical acticvity level Goal Time Frame: 4-6 Weeks Goal Progress: 85% Goal 4:: <10% back oswestry score disabiliity Goal Time Frame: 4-6 Weeks Goal Progress: Progressing Goal 5:: i APPROP GYM BASED EX FOR STRENGTH Goal Time Frame: 2-4 Weeks Goal Progress: Goal Met Goal 6:: wALK OUTDOORS WITHOUT lob ON GRASS, 9 SEC tug AND fga AT 25/30 Goal Time Frame: 4-6 Weeks Goal Progress: new goal Anticipated Interventions Patient/Client Instruction: Educate patient on: Condition, Plan of Care For the Purpose of:: To decrease pain, To improve muscle performance and motor function, To increase tolerance to activity/condition/position, To improve ability of physical actions for home/community/work/leisure, To improve gait and locomotor functions Therapeutic Exercise to Include: Strength training, Postural training, Flexibilty training, Gait and locomotor training, Passive ROM, Active ROM For the Purpose of:: To decrease pain, To improve nutrient delivery to tissue, To improve muscle performance and motor function, To increase tolerance to activity/condition/position, To improve ability of physical actions for home/community/work/leisure, To improve gait and locomotor functions Cryotherapy (ice pack, ice massage): Yes For the Purpose of:: To decrease swelling/inflammation Please do not hesitate to contact me at [phone] by phone or if you have questions or concerns regarding this new plan of care! Sincerely, Arun Rees, DPT, OCS, CSCS
--- NOTE | 2020-01-10 09:42 | HP.PTREVAL ---
Dr. Curtis Bianchi MD, It has been my pleasure to treat RADHA LING over the last 28 visits for Debility lumbar radicuopathy post surgery fusion. Please see the progress note below for an update on the physical therapy plan of care! Subjective: Saw doctor and will have MRI to see if nerve above fusion is creating weakness. May needa shot or more surgery. Silver feet are stronger adn happy with that. Pt frustrated with more possible surgery. Lifted restrictions on LB ROM. MRI next Monday. Pain is 2/10 L leg, back is OK painwise, R leg OK pain robles. New script received for core strength, aerobic, and L thigh strength. still has intermittent problems with L thigh weakness causing instability. This is her main problem. Wants to continue, can do gym ex herself. Objective/Function: 12.2# R DF adn 11.2 L DF Stronger Right and weaker L. - ANR, - slump, - SLR. quad R 25# adn L 4#. LB AROM ext mod limited, SB mod limited in LB getting most of motion from upper spine, Flexion mod limited with hands just below knees. Walking carefully and slowly with poor confidence in L leg due to recent falls and giving way, recommended cane whh she will get. Has walker that she uses as needed. Has L foot slap. main problems are weakness progressin in L quad/DF casuing fall risk and mobility deficits with confidence. Also LB ROM is limtied due to healing process but we can start to work on this now. R ankle doing better. Plan Plan: 3x/week for 3 weeks for : Monitor R ankle strength and gym program [facility] patient will do herself with cane. In clinic, please do L quad. FES and focussed strengthening. Also slow progression of LB ROM exercises to HEP. Montior pain. See goals and appropriate to cotninue due to complications of L leg weakness and need to use LB ROM and Fair prognosis Goals Goal 1:: 15# R DF strengtha dn walk without foot slap Goal Time Frame: 4-6 Weeks Goal Progress: Progressing Goal 2:: Pt return to pre surgical exercises as allowed by limitations including marine mammal trainer Goal Time Frame: 4-6 Weeks Goal Progress: gym Goal 3:: Pt feel 100% back to pre surgical acticvity level Goal Time Frame: 4-6 Weeks Goal Progress: L leg holding back Goal 4:: <10% back oswestry score disabiliity Goal Time Frame: 4-6 Weeks Goal Progress: Goal Met Goal 5:: increase LB AROM to WFL by reaching to mid adames and extending to 20 degrees without pain to help pick things up off floor easier. Goal Time Frame: 4-6 Weeks Goal Progress: NEW GOAL Goal 6:: wALK OUTDOORS WITHOUT lob ON GRASS, 9 SEC tug AND fga AT 25/30 Goal Time Frame: 4-6 Weeks Goal Progress: no L leg, appropriate. Anticipated Interventions Patient/Client Instruction: Educate patient on: Condition, Plan of Care For the Purpose of:: To decrease pain, To improve muscle performance and motor function, To increase tolerance to activity/condition/position, To improve ability of physical actions for home/community/work/leisure, To improve gait and locomotor functions Therapeutic Exercise to Include: Strength training, Postural training, Flexibilty training, Gait and locomotor training, Passive ROM, Active ROM For the Purpose of:: To decrease pain, To improve nutrient delivery to tissue, To improve muscle performance and motor function, To increase tolerance to activity/condition/position, To improve ability of physical actions for home/community/work/leisure, To improve gait and locomotor functions Cryotherapy (ice pack, ice massage): Yes For the Purpose of:: To decrease swelling/inflammation Please do not hesitate to contact me at [phone] by phone or if you have questions or concerns regarding this new plan of care! Sincerely, Arun Rees, DPT, OCS, CSCS
--- NOTE | 2020-01-31 09:56 | HP.PTREVAL ---
Dr. Curtis Bianchi MD, It has been my pleasure to treat RAHDA LING over the last 37 visits for Debility lumbar radicuopathy post surgery fusion. Please see the progress note below for an update on the physical therapy plan of care! Subjective: Pt had NCT and told by them that she had a pinched nerve betweeen L45. Will have meeting with Dr. Kumari telephone today. Pain L LE improving and can be ) and can get up to 6/0 for no apparent reason. No other pain. Sleeping O for the most part. The L leg is the main problem adn the weakness whcih gives her poor confidence and gives out sometimes when attempting to get off floor. Needs sofa to get up off floor. Not using cane at home but is out and about. frustrated with weaknesss in L quad. Otherwise doing well. Objective/Function: LB AROM EXT TO 20 DEGREES AND ROTATIONS WNL AND FLEXION MUCH IMPROVED ADN ABLE TO TOUCH GROUND WITH SOME EFFORT. TUG 9 seconds today. FGA +3 to 25. R ankle strength 14#(+2). L quad strength 6#(+2 minimal improvement and not functional. Up step L quad gave way and would have hit round even with both hands on railing without therapist intervention on gait belt. Scared her. OVERALL, PT DOING EXCELLENT WITH FUNCTION , PAIN AND ROM OUTSIDE OF L QUAD WEAKNESS WHCIH IS FRUSTRATING AND DANGEROUS FOR PATIENT AND NOT IMPROVING OVERALL. Plan Plan: HOLD UNTIL PT CONSULT WITH DOCTOR ABOUT L QUAD TEST ADN NCT RESULTS. WILL CONTINUE GYM EX ADN HOME EX FOR ROM AND CALL AFTER DOCTOR VISIT TO CONTINUE THERAPY IF ORDERED OR FIND ANOTHER SOLUTION/CONTINUE ON I ADN D/C Goals Goal 1:: 15# R DF strengtha dn walk without foot slap Goal Time Frame: 4-6 Weeks Goal Progress: Goal Met Goal 2:: Pt return to pre surgical exercises as allowed by limitations including inside sales trainer Goal Time Frame: 4-6 Weeks Goal Progress: gym MET Goal 3:: Pt feel 100% back to pre surgical acticvity level Goal Time Frame: 4-6 Weeks Goal Progress: L QUAD WEAK! Goal 4:: <10% back oswestry score disabiliity Goal Time Frame: 4-6 Weeks Goal Progress: Goal Met Goal 5:: increase LB AROM to WFL by reaching to mid adames and extending to 20 degrees without pain to help pick things up off floor easier. Goal Time Frame: 4-6 Weeks Goal Progress: Goal Met Goal 6:: wALK OUTDOORS WITHOUT lob ON GRASS, 9 SEC tug AND fga AT 25/30 Goal Time Frame: 4-6 Weeks Goal Progress: tug AND fga MET. Anticipated Interventions Patient/Client Instruction: Educate patient on: Condition, Plan of Care For the Purpose of:: To decrease pain, To improve muscle performance and motor function, To increase tolerance to activity/condition/position, To improve ability of physical actions for home/community/work/leisure, To improve gait and locomotor functions Therapeutic Exercise to Include: Strength training, Postural training, Flexibilty training, Gait and locomotor training, Passive ROM, Active ROM For the Purpose of:: To decrease pain, To improve nutrient delivery to tissue, To improve muscle performance and motor function, To increase tolerance to activity/condition/position, To improve ability of physical actions for home/community/work/leisure, To improve gait and locomotor functions Cryotherapy (ice pack, ice massage): Yes For the Purpose of:: To decrease swelling/inflammation Please do not hesitate to contact me at [phone] by phone or if you have questions or concerns regarding this new plan of care! Sincerely, Arun Rees, DPT, OCS, CSCS
--- NOTE | 2020-02-05 14:25 | HP.PTREVAL_ITS ---
Dr. Curtis Bianchi MD, It has been my pleasure to treat RADHA LING over the last 37 visits for Debility lumbar radicuopathy post surgery fusion. Please see the progress note below for an update on the physical therapy plan of care! Subjective: Pt on barod with continued therapy per doctor order and willing to continue gym ex herself adn quad strength and FES in therapy. She understand prognosis is questionable and surgery may be necessary. Objective/Function: LB AROM EXT TO 20 DEGREES AND ROTATIONS WNL AND FLEXION MUCH IMPROVED ADN ABLE TO TOUCH GROUND WITH SOME EFFORT. TUG 9 seconds today. FGA +3 to 25. R ankle strength 14#(+2). L quad strength 6#(+2 minimal improvement and not functional. Up step L quad gave way and would have hit round even with both hands on railing without therapist intervention on gait belt. Scared her. OVERALL, PT DOING EXCELLENT WITH FUNCTION , PAIN AND ROM OUTSIDE OF L QUAD WEAKNESS WHCIH IS FRUSTRATING AND DANGEROUS FOR PATIENT AND NOT IMPROVING OVERALL. Plan Plan: 3x/week for 10 visits to attempt quad strength and FES on quad and monitor patients independence and progress with gym exercises. She understands prognosis is questionable. New goals below and subjective adn objective from last document still appropropriate. Goals Goal 1:: 15# R DF strengtha dn walk without foot slap Goal Time Frame: 4-6 Weeks Goal Progress: Goal Met Goal 2:: Pt return to pre surgical exercises as allowed by limitations including sharepoint trainer Goal Time Frame: 4-6 Weeks Goal Progress: gym MET Goal 3:: Pt feel 100% back to pre surgical acticvity level Goal Time Frame: 4-6 Weeks Goal Progress: L QUAD WEAK! Goal 4:: LEFS score improved to 64/80 to show improved LE mobiitya dn function Goal Time Frame: 4-6 Weeks Goal Progress: Goal Met Goal 5:: strength L quad 20# and able to step up on small 2 inch box without UE assist with L LE. Goal Time Frame: 4-6 Weeks Goal Progress: Goal Met Goal 6:: wALK OUTDOORS WITHOUT lob ON GRASS, Goal Time Frame: 4-6 Weeks Goal Progress: tug AND fga MET. Anticipated Interventions Patient/Client Instruction: Educate patient on: Condition, Plan of Care For the Purpose of:: To decrease pain, To improve muscle performance and motor function, To increase tolerance to activity/condition/position, To improve ability of physical actions for home/community/work/leisure, To improve gait and locomotor functions Therapeutic Exercise to Include: Strength training, Postural training, Flexibilty training, Gait and locomotor training, Passive ROM, Active ROM For the Purpose of:: To decrease pain, To improve nutrient delivery to tissue, To improve muscle performance and motor function, To increase tolerance to activity/condition/position, To improve ability of physical actions for home/community/work/leisure, To improve gait and locomotor functions Cryotherapy (ice pack, ice massage): Yes For the Purpose of:: To decrease swelling/inflammation Please do not hesitate to contact me at [phone] by phone or if you have questions or concerns regarding this new plan of care! Sincerely, Arun Rees, DPT, OCS, CSCS
--- NOTE | 2020-03-10 10:34 | HP.PTREVAL ---
Dr. Curtis Bianchi MD, It has been my pleasure to treat RADHA LING over the last 47 visits for Debility lumbar radicuopathy post surgery fusion. Please see the progress note below for an update on the physical therapy plan of care! Subjective: Been doing very wel, every week a little better. Taking steps better at home. Did [employer] Monday without cane and no legs giving out adn doesn't feel like it will. Lifting leg with leg muscles to get in car now. Has low dining room chair at home that still cannot get out of but otherwise doing better. Can lift leg to cross it now. Friends noticing improvements. Worked outside Monday much of day and leg was tired. Pain not bad. Haven't needed tylenol for over a week. Tingly in left lower leg improving but still present. Sleeping is better. Working out in gym 3x/week. Leg press till broken. Walking up steps recirocally now. Still feels like needs help with current step up and squat exercises for quad and wants continued FES. Objective/Function: 17#DF R. 12# L quad is improved. 9 second Tug same. Much more confidence with gait and steps. FGA is +2 more. No cane needed during session today. Definitiely improving strength and function and safety with L quad weakness. Appropriate to cotninue 3 more weeks POC below as patient does not feel she can do these current exercises herself yet and needs more confidence walking outside. Plan Plan: 3x/week for 3 weeks for. 1. continue quad workout to [place] with list. 2. Walk outside for ocnfidnece on grass and rocks and hills. 3. continue FES to L quad [address] Script from Dr[address] Grant is present and apporpriate and fair prognosis. Goals Goal 1:: 15# R DF strengtha dn walk without foot slap Goal Time Frame: 4-6 Weeks Goal Progress: Goal Met Goal 2:: Pt return to pre surgical exercises as allowed by limitations including product trainer Goal Time Frame: 4-6 Weeks Goal Progress: gym MET Goal 3:: Pt feel 100% back to pre surgical acticvity level Goal Time Frame: 4-6 Weeks Goal Progress: 85%, approp Goal 4:: LEFS score improved to 64/80 to show improved LE mobiitya dn function Goal Time Frame: 4-6 Weeks Goal Progress: Goal Met Goal 5:: strength L quad 20# and able to step up on small 2 inch box without UE assist with L LE. Goal Time Frame: 4-6 Weeks Goal Progress: progressing approp Goal 6:: wALK OUTDOORS WITHOUT lob ON GRASS, Goal Time Frame: 4-6 Weeks Goal Progress: work on outdoors. Anticipated Interventions Patient/Client Instruction: Educate patient on: Condition, Plan of Care For the Purpose of:: To decrease pain, To improve muscle performance and motor function, To increase tolerance to activity/condition/position, To improve ability of physical actions for home/community/work/leisure, To improve gait and locomotor functions Therapeutic Exercise to Include: Strength training, Postural training, Flexibilty training, Gait and locomotor training, Passive ROM, Active ROM For the Purpose of:: To decrease pain, To improve nutrient delivery to tissue, To improve muscle performance and motor function, To increase tolerance to activity/condition/position, To improve ability of physical actions for home/community/work/leisure, To improve gait and locomotor functions Cryotherapy (ice pack, ice massage): Yes For the Purpose of:: To decrease swelling/inflammation Please do not hesitate to contact me at [phone] by phone or if you have questions or concerns regarding this new plan of care! Sincerely, Arun Rees, DPT, OCS, CSCS
--- NOTE | 2020-04-03 08:52 | HP.PTREVAL ---
Dr. Curtis Bianchi MD, It has been my pleasure to treat RADHA LING over the last 57 visits for Debility lumbar radicuopathy post surgery fusion. Please see the progress note below for an update on the physical therapy plan of care! Subjective: No giving out lately. Steps if not to code, can be challenging.No aD needed. Steps reciprocally all the time. Doing workout on own. Objective/Function: 18# L knee ext. R ankle 15#. Walking well and without issues. Nw goal of miantenance on own adn fair prognosis Plan Plan: f/u 3-4 weeks to check strength, steps , FGA and likely d/c, pt to call prior iof concerns. 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 Goal Time Frame: 4-6 Weeks Goal Progress: Progressing Goal 6:: wALK OUTDOORS WITHOUT lob ON GRASS, Goal Time Frame: 4-6 Weeks Goal Progress: Goal Met Anticipated Interventions Patient/Client Instruction: Educate patient on: Condition, Plan of Care For the Purpose of:: To decrease pain, To improve muscle performance and motor function, To increase tolerance to activity/condition/position, To improve ability of physical actions for home/community/work/leisure, To improve gait and locomotor functions Therapeutic Exercise to Include: Strength training, Postural training, Flexibilty training, Gait and locomotor training, Passive ROM, Active ROM For the Purpose of:: To decrease pain, To improve nutrient delivery to tissue, To improve muscle performance and motor function, To increase tolerance to activity/condition/position, To improve ability of physical actions for home/community/work/leisure, To improve gait and locomotor functions Cryotherapy (ice pack, ice massage): Yes For the Purpose of:: To decrease swelling/inflammation Please do not hesitate to contact me at [phone] by phone or if you have questions or concerns regarding this new plan of care! Sincerely, Arun Rees, DPT, OCS, CSCS
--- NOTE | 2020-05-01 08:51 | HP.PTDCSUM_ITS ---
It has been my pleasure to treat RADHA ILNG referred by Dr. Curtis Bianchi MD, with the diagnosis of Debility lumbar radicuopathy post surgery fusion for a total of 58 visit(s). Discharge Date: 05/01/20 Please see the following information for a summary of their discharge status. Subjective: Feeling excellent. Walking improved. Getting compliments on her walking. Been faithful 3x/week with workout. Still has slight pain distal to L knee bu improving adn intermittent. Strength is improving. L lB and leg Pain Intensity (Out of 10): 0 % Improvement: 92 Objective/Function: Walks normal, steps reciprocal with one rail with no evidence of weakness ascending, slight L weakness descending barely noticeable. 20# R Df strength and 21 # on L. quad strength 21# L. Much improved and doing well. Goal 1:: 15# R DF strengtha dn walk without foot slap Goal Progress: Goal Met Goal 2:: Pt return to pre surgical exercises as allowed by limitations including lead trainer Goal Progress: Goal Met Goal 3:: Pt feel 100% back to pre surgical acticvity level Goal Progress: 90% Goal 4:: Maintain improvements in strength and mobility over next 4 weeks without in clinic therapy Goal Progress: Goal Met Goal 5:: strength L quad 20# and able to step up on small 2 inch box without UE assist with L LE. Goal Progress: Goal Met Goal 6:: wALK OUTDOORS WITHOUT lob ON GRASS, Goal Progress: Goal Met Plan: d/c to gym ex Discharge Comments: Pt doing very well with obvious functional and strength improvements over the last month. Will continue via gym ex 3x/week and f/u with doctor in a few weeks. If there are questions or concerns regarding this patient's physical therapy, please feel free to call me at [phone]. Thank you for the referral of this patient. Sincerely, Arun Rees, DPT, OCS, CSCS
== END 2020-05-01 19:00 | disposition home or self-care (01) ==
LOC: PT 08:30
PROVIDERS: PCP Family Medicine; Referring Provider Family Medicine; Visit Provider Family Medicine
DX: M54.16 Radiculopathy, lumbar region (principal); R53.81 Other malaise; Z98.1 Arthrodesis status
CPT/HCPCS: 97014; 97032; 97110; 97116; 97162; 97164; G0283

== ENCOUNTER → 2020-07-02 11:28 | Outpatient (CLI) | payer MEDICARE, OTHER, SELFPAY ==
[2020-07-02 16:21] LABS: Anion Gap 9 (5-15); BUN 16 mg/dL (7-18); BUN/Creat Ratio 18.9 RATIO (10-20); Calcium,Total 9.3 mg/dL (8.5-10.1); Chloride 105 mmol/L (98-107); Cholesterol 252 mg/dL (200); Creatinine, Serum 0.85 mg/dL (0.55-1.02); EST Glomerular Filtration Rate 69 mL/min (>60); Est Glom Filt Rate - Afr Amer 83 mL/min (>60); Glucose 90 mg/dL (74-106); High Density Lipoprotein 117 mg/dL; Phosphorus 2.8 mg/dL (2.5-4.9); Potassium 3.8 mmol/L (3.5-5.1); Sodium Level 139 mmol/L (136-145); Thyroid Stim Hormone (TSH) 1.45 uIU/mL (0.358-3.74); Triglycerides 60 mg/dL; Very Low Density Lipoprotein 12 mg/dL (5-40)
== END ==
PROVIDERS: PCP Family Medicine; Referring Provider Family Medicine; Visit Provider Family Medicine
DX: Z13.220 Encounter for screening for lipoid disorders (principal); M85.80 Other specified disorders of bone density and structure, unspecified site; Z79.899 Other long term (current) drug therapy
CPT/HCPCS: 36415; 80048; 80061; 82330; 84100; 84443

== ENCOUNTER → 2020-07-21 10:20 | Outpatient (CLI) | payer MEDICARE, OTHER, SELFPAY ==
[2020-02-10 14:45] VITALS: BMI 32.1
--- NOTE | 2020-07-21 10:22 | BI_ITS ---
MAMMOGRAPHY - BILATERAL SCREENING REASON FOR EXAM: Female, 80 years old. Routine annual screening examination. PERTINENT HISTORY: TECHNIQUE: Digital bilateral breast vimal (3D mammographic acquisition) in the CC and MLO projections. 2-D mediolateral oblique (MLO) and craniocaudad (CC) views of both breasts were obtained. CAD: Full Field Digital Mammography with Computer Added Detection was performed. COMPARISON: 07/03/2018 FINDINGS: Breast Composition: Scattered There are no dominant masses or suspicious calcifications. No other significant abnormalities are identified. BI/SCREEN MAMM (CAD) W/VIMAL BILAT IMPRESSION: Stable bilateral screening mammogram. Yearly follow-up mammogram recommended. (A) ASSESSMENT CATEGORY: BIRADS Category 1: Negative. A letter regarding these results will be sent to the patient by the facility within 30 days. Approximately 10% of breast cancers are not detected by mammography. A normal mammogram should not delay biopsy of a clinically suspicious abnormality. [id number] Electronically Signed: Jatinder Sofia, at 8:12 EST Tel , Service support ,
--- NOTE | 2020-07-21 10:25 | BD_ITS ---
STUDY: DUAL ENERGY X-RAY ABSORPTIOMETRY / DXA REASON FOR EXAM: Female, 80 years old. Age of surgical camelia 40. Pat is 175# and 62.5 and quot; a loss os 2.5 and quot; per pat. Takes 1200mg calcium. Exercises a little. Hx of left wrist fx - fall. Hx of Lassiter fusion L4-S1. TECHNIQUE: Bone Mineral Density (BMD) measurements of lumbar spine and bilateral hips were obtained. COMPARISON: Comparison is made with prior study dated 07/03/2018. FINDINGS: Lumbar Spine (L1-L4): g/cm2 (1.112) / T-score (-0.7) / Z-score (1.1) Findings are suggestive of normal bone density with a low fracture risk. Left Femur Total: g/cm2 (0.791) / T-score (-1.7) / Z-score (0.3) Left Femoral Neck: g/cm2 (0.783) / T-score (-1.8) / Z-score (0.3) Right Femur Total: g/cm2 (0.757) / T-score (-2.0) / Z-score (0.0) Right Femoral Neck: g/cm2 (0.780) / T-score (-1.9) / Z-score (0.3) The T-Scores on the most recent prior examination were: Lumbar Spine (L1-L4): There has been improvement of bone density since the previous examination. Left Femur Total: which represents a worsening of 10.5%. Right Femur Total: which represents a worsening of 9.8%. BD/Dexa Bone Density Study IMPRESSION: The patient is considered osteopenic as outlined below according to World Kedar Organization (WHO) criteria with a moderate fracture risk. There has been worsening of bone density since the previous examination. Reference Information: The T-score is the number of standard deviations above or below the standard which is normal for young adults at their peak bone mineral density. The World Health Organization (WHO) interprets the T-scores as follows: Above -1 Normal bone density Between -1 and -2.5 Osteopenia Equal to / or below -2.5 Osteoporosis As a practical clinical guideline, osteopenia may be graded as follows: Mild -1 through -1.5 Moderate -1.6 through -2.0 Severe -2.1 through -2.4 The Z-score is the number of standard deviations above or below age-matched controls. A Z-score of less than -1.5 would be considered abnormal. References: 1. NIH Osteoporosis and Related Bone Diseases www osteo.org 2. International Society for Clinical Densitometry www iscd.org 3. National Osteoporosis Foundation www nof.org Electronically Signed: Anmol Pandya, at 16:25 EST , Service support ,
== END ==
PROVIDERS: PCP Family Medicine; Referring Provider Family Medicine; Visit Provider Family Medicine
DX: M85.89 Other specified disorders of bone density and structure, multiple sites (principal); Z12.31 Encounter for screening mammogram for malignant neoplasm of breast
CPT/HCPCS: 77063; 77067; 77080

== ENCOUNTER → 2021-07-06 09:45 | Outpatient (CLI) | payer MEDICARE, OTHER, SELFPAY ==
[2021-07-06 12:22] LABS: Hematocrit 40.9 % (37-47); Hemoglobin 13.4 g/dL (12.0-15.0); Mean Corp Hgb Conc 32.8 g/dL (32-36); Mean Corpuscular Hgb 31.5 pg (27.0-32.0); Mean Platelet Vol. 9.7 fl (6.2-12.0); Platelet Count 235 K/mm3 (150-450); RBC Distribution Width CV 12.3 % (11.6-14.6); RBC Distribution Width SD 43.3 fl (35.1-43.9); Red Blood Count 4.26 M/mm3 (4.2-5.4); White Blood Count 5.6 K/mm3 (4.4-11.0)
[2021-07-06 12:43] LABS: Anion Gap 6 (5-15); BUN 14 mg/dL (7-18); BUN/Creat Ratio 15.8 RATIO (10-20); Calcium,Total 9.7 mg/dL (8.5-10.1); Chloride 106 mmol/L (98-107); Cholesterol 238 mg/dL (200); Creatinine, Serum 0.89 mg/dL (0.55-1.02); EST Glomerular Filtration Rate 65 mL/min (>60); Est Glom Filt Rate - Afr Amer 79 mL/min (>60); Glucose 91 mg/dL (74-106); High Density Lipoprotein 96 mg/dL; Potassium 3.8 mmol/L (3.5-5.1); Sodium Level 140 mmol/L (136-145); Thyroid Stim Hormone (TSH) 1.25 uIU/mL (0.358-3.74); Triglycerides 46 mg/dL; Very Low Density Lipoprotein 9 mg/dL (5-40)
== END ==
PROVIDERS: PCP Family Medicine; Referring Provider Family Medicine; Visit Provider Family Medicine
DX: R07.9 Chest pain, unspecified (principal)
CPT/HCPCS: 36415; 80048; 80061; 83735; 84443; 85027

== ENCOUNTER → 2021-08-02 13:30 | Outpatient (CLI) | payer MEDICARE, OTHER, SELFPAY ==
--- NOTE | 2021-08-02 13:34 | BI_ITS ---
MAMMOGRAPHY - BILATERAL SCREENING REASON FOR EXAM: Female, 81 years old. Routine annual screening examination. PERTINENT HISTORY: Grandmother with breast cancer. TECHNIQUE: Digital bilateral breast vimal (3D mammographic acquisition) in the CC and MLO projections. 2-D mediolateral oblique (MLO) and craniocaudad (CC) views of both breasts were obtained. CAD: Full Field Digital Mammography with Computer Added Detection was performed. COMPARISON: Comparison is made with prior study 07/21/2020 and 07/03/2018. FINDINGS: Breast Composition: There are scattered areas of fibroglandular density. There are no dominant masses or suspicious calcifications. No other significant abnormalities are identified. There has been no significant change since the prior study. BI/SCRN MAMM (CAD)W/VIMAL BILAT IMPRESSION: Stable bilateral screening mammogram. Yearly follow-up mammogram recommended. (A) ASSESSMENT CATEGORY: BIRADS Category 1: Negative. A letter regarding these results will be sent to the patient by the facility within 30 days. Approximately 10% of breast cancers are not detected by mammography. A normal mammogram should not delay biopsy of a clinically suspicious abnormality. [id number] Electronically Signed: Anmol Pandya MD at 14:37 EST , Service support ,
== END ==
PROVIDERS: PCP Family Medicine; Visit Provider Family Medicine
DX: Z12.31 Encounter for screening mammogram for malignant neoplasm of breast (principal)
CPT/HCPCS: 77063; 77067

== ENCOUNTER 2022-07-27 08:57 | Outpatient (RCR) | payer MEDICARE, OTHER, SELFPAY ==
--- NOTE | 2022-07-27 09:45 | HP.PTEVAL_ITS ---
Patient's Visit Information RADHA LING is a 82 year old F referred to Physical Therapy by Dr. Curtis Bianchi MD with a diagnosis of Lumbar DDD. Date of Evaluation: 07/27/22 Physical Therapist: Arun Rees DPT, OCS, CSCS - Visit Plan Duration: one more Plan: one f/u in 3 weeks to ensure workout going well. - Subjective Been doing same exercises for about three years. Wants to bump program up. Wants to strengthen back as she has titanium fusion in there and h/o laminectomy. Raking leaves or doing alot at home can make her ache but it goes away. Wants to strengthen back. Comes to [employer] regularly and works on machines. Doing leg press, hip abduction, knee flexion and extension, stretches on slant board, marching. heel raises. - Objective back extension(16)40# 2x10. abdominal crunch machine (15) 25# 2x10. Pull do wn(24)20# 2x10. row (26) 25# 2x10. Scit Fit Level 1 (or Nustep) 3-5 minutes. Shown progressions of step ups, squats and knee extension to heavier weights to challenge. LB AROM WFL and moving well today without pain. LE strength 4/5 in all LE movements excpt R DF which is slightly weaker than L but functional. - Balance/Special Test Scores Oswestry Low Back Score: 0 - Goals Goal 1:: i in progression of core ex in gym for I. Goal Time Frame: 2-4 Weeks - Rehabilitation Potential Physical Therapy Diagnosis: Lumbar dDD, just needs exercise progression. Rehabilitation Potential: Fair - Anticipated Interventions Patient/Client Instruction: Educate patient on: Condition, Plan of Care For the Purpose of:: To improve muscle performance and motor function Therapeutic Exercise to Include: Strength training For the Purpose of:: To improve muscle performance and motor function Thank you for the opportunity to evaluate your patient. For Medicare and Medicare HMO plans, please review the plan of care and approve it. It will need to be FAXED BACK to us at [phone] for Medicare purposes. For Medicare only, by signing this I certify the plan of care. Please let me know if there are questions or concerns regarding this plan of care. Physician Signature: Date:
--- NOTE | 2022-08-10 09:46 | HP.PTDCSUM ---
It has been my pleasure to treat RADHA LING referred by Dr. Curtis Bianchi MD, with the diagnosis of Lumbar DDD for a total of 2 visit(s). Discharge Date: 08/10/22 Please see the following information for a summary of their discharge status. Subjective: Doing fine , just questions on ab machine. Otherwise enjoys the new workout adn no problems with pain. % Improvement: 25 Objective/Function: Good corrected form on ab machine. No other questions or concerns and does not need further therapy. Goal 1:: i in progression of core ex in gym for I. Goal Progress: Goal Met Plan: d/c If there are questions or concerns regarding this patient's physical therapy, please feel free to call me at [phone]. Thank you for the referral of this patient. Sincerely, Arun Rees, DPT, OCS, CSCS Balance/Gait/Functional tests - Balance/Special Test Scores Oswestry Low Back Score: 0
== END 2022-07-27 19:00 | disposition home or self-care (01) ==
LOC: PT 08:57
PROVIDERS: PCP Family Medicine; Referring Provider Family Medicine; Visit Provider Family Medicine
DX: M51.36 Other intervertebral disc degeneration, lumbar region (principal)
CPT/HCPCS: 97110; 97161

== ENCOUNTER → 2022-09-22 | Outpatient (CLI) | payer MEDICARE, OTHER, SELFPAY ==
--- NOTE | 2022-09-22 09:56 | BI_ITS ---
MAMMOGRAPHY - BILATERAL SCREENING REASON FOR EXAM: Female, 82 years old. Routine annual screening examination. PERTINENT HISTORY: Grandmother with breast cancer. TECHNIQUE: Digital bilateral breast vimal (3D mammographic acquisition) in the CC and MLO projections. 2-D mediolateral oblique (MLO) and craniocaudad (CC) views of both breasts were obtained. CAD: Full Field Digital Mammography with Computer Added Detection was performed. COMPARISON: Comparison is made with prior study 08/02/2021 and 07/21/2020. FINDINGS: Breast Composition: There are scattered areas of fibroglandular density. There are no dominant masses or suspicious calcifications. Stable benign-appearing bilateral axillary lymph nodes. No other significant abnormalities are identified. There has been no significant change since the prior study. BI/SCRN MAMM (CAD)W/VIMAL BILAT IMPRESSION: Stable bilateral screening mammogram. Yearly follow-up mammogram recommended. (A) ASSESSMENT CATEGORY: BIRADS Category 2: Benign. A letter regarding these results will be sent to the patient by the facility within 30 days. Approximately 10% of breast cancers are not detected by mammography. A normal mammogram should not delay biopsy of a clinically suspicious abnormality. [id number] Electronically Signed: Anmol Pandya MD at 12:54 EST ,
--- NOTE | 2022-09-22 10:03 | BD_ITS ---
STUDY: DUAL ENERGY X-RAY ABSORPTIOMETRY / DXA REASON FOR EXAM: Female, 82 years old. [id number] TECHNIQUE: Bone Mineral Density (BMD) measurements of lumbar spine and bilateral hips were obtained. COMPARISON: Comparison is made with prior study 07/21/2020. FINDINGS: Lumbar Spine (L1-L4): g/cm2 (0.961) / T-score (-0.9) / Z-score (1.9) Findings are suggestive of normal bone density with a low fracture risk. Left Femur Total: g/cm2 (0.790) / T-score (-1.2) / Z-score (0.9) Left Femoral Neck: g/cm2 (0.585) / T-score (-2.4) / Z-score (0.0) Right Femur Total: g/cm2 (0.740) / T-score (-1.7) / Z-score (0.5) Right Femoral Neck: g/cm2 (0.660) / T-score (-1.7) / Z-score (0.7) The T-Scores on the most recent prior examination were: Lumbar Spine (L1-L4): There has been worsening of bone density since the previous examination. Left Femur Total: which represents an improvement of 8%. Right Femur Total: which represents an improvement of 6%. BD/Dexa Bone Density Study IMPRESSION: The patient is considered osteopenic as outlined below according to World Kedar Organization (WHO) criteria with a high fracture risk. There has been improvement of bone density since the previous examination. Reference Information: The T-score is the number of standard deviations above or below the standard which is normal for young adults at their peak bone mineral density. The World Health Organization (WHO) interprets the T-scores as follows: Above -1 Normal bone density Between -1 and -2.5 Osteopenia Equal to / or below -2.5 Osteoporosis As a practical clinical guideline, osteopenia may be graded as follows: Mild -1 through -1.5 Moderate -1.6 through -2.0 Severe -2.1 through -2.4 The Z-score is the number of standard deviations above or below age-matched controls. A Z-score of less than -1.5 would be considered abnormal. References: 1. NIH Osteoporosis and Related Bone Diseases www osteo.org 2. International Society for Clinical Densitometry www iscd.org 3. National Osteoporosis Foundation www nof.org Electronically Signed: Anmol Pandya MD at 8:54 EST ,
== END | disposition home or self-care (01) ==
LOC: OPBD 09:52
PROVIDERS: PCP Family Medicine; Visit Provider Family Medicine
DX: Z78.0 Asymptomatic menopausal state (principal); Z12.31 Encounter for screening mammogram for malignant neoplasm of breast
CPT/HCPCS: 77063; 77067; 77080

== ENCOUNTER → 2022-10-11 | Outpatient (CLI) | payer MEDICARE, OTHER, SELFPAY ==
[2022-10-11 15:59] LABS: Anion Gap 8 (5-15); BUN 20 mg/dL (7-18); BUN/Creat Ratio 23.6 RATIO (10-20); Calcium,Total 9.9 mg/dL (8.5-10.1); Chloride 108 mmol/L (98-107); Creatinine, Serum 0.85 mg/dL (0.55-1.02); EST Glomerular Filtration Rate 68 mL/min (>60); Est Glom Filt Rate - Afr Amer 83 mL/min (>60); Glucose 98 mg/dL (74-106); Potassium 4.2 mmol/L (3.5-5.1); Sodium Level 144 mmol/L (136-145)
[2022-10-11 16:22] LABS: Vitamin D,25 Hydroxy 90.8 ng/mL
== END | disposition home or self-care (01) ==
LOC: MFPLAB 11:25
PROVIDERS: PCP Family Medicine; Referring Provider Family Medicine; Visit Provider Family Medicine
DX: M85.80 Other specified disorders of bone density and structure, unspecified site (principal)
CPT/HCPCS: 36415; 80048; 82306

== ENCOUNTER 2022-10-27 13:48 | Emergency (ER) | payer MEDICARE, OTHER, SELFPAY ==
[2022-10-27 13:49] VITALS: BP 137/77; PULSE 85; RESP 14; TEMP 36.4; O2SAT 95; BMI 65.8
--- NOTE | 2022-10-27 14:05 | RAD_ITS ---
STUDY: X-RAY - LEFT KNEE REASON FOR EXAM: Female, 82 years old. Left knee pain. No known injury. TECHNIQUE: 4 view(s) of the knee. COMPARISON: None. FINDINGS: Normal visualized distal femur. Normal visualized proximal tibia and fibula. Normal proximal tibiofibular articulation. Normal medial femorotibial compartment. There is mild degenerative arthrosis of the lateral femorotibial compartment. There is mild degenerative arthrosis of the patellofemoral articulation. Small joint effusion. RAD/Knee 4 or More Views IMPRESSION: Degenerative arthrosis. Small joint effusion. Electronically Signed: Anmol Pandya MD at 14:27 EST ,
--- NOTE | 2022-10-27 16:10 | ED.VIS.LOWEX ---
HPI History of Present Illness Chief Complaint: Lower Extremity Injury Informant: patient Onset/Context/Timing Onset: Today Context: Sudden Onset Timing: Continuous Quality of Pain: Aching Location: L knee Current Severity: Mild Maximum Severity: Moderate Worsened by: straightening, walking Relieved by: rest Associated Symptoms Associated Symptoms: Negative for Parasthesia, Weakness or Loss of Funtion Narrative Narrative: Patient had bent her leg while sitting down to take her shoe off and then when she put her foot down to take a step and put weight on it she felt sudden pain in her left knee, subsequently it swelled some. She presents for this. She did not fall or have any other injury. No prior knee problems. She is able to walk but with discomfort. Takes no anticoagulants. [facility] Medical History History of back problems Home Medications multivitamin (Daily Multi-Vitamin tablet) 1 tab PO QAM supplement 10/19/17 [History Last Taken Unknown] ascorbic acid (vitamin C) 500 mg tablet 500 mg PO DAILY supplement 10/11/19 [History Last Taken Unknown] calcium carbonate 500 mg-vitamin D3 5 mcg (200 unit) tablet 1 ea PO DAILY supplement 10/11/19 [History Last Taken Unknown] glucosamine sulf dipot chlr,msm,chond 550 mg-C 30 mg-zheng 1 mg capsule 1 ea PO DAILY joints 10/11/19 [History Last Taken Unknown] Allergy/AdvReac Type Severity Reaction Status Date / Time codeine AdvReac Upset Verified 10/27/22 13:52 Stomach Family History Grandmother Breast cancer CVA (cerebral vascular accident) Mother Cancer Father Cancer Grandfather Myocardial infarction Surgical History Fusion of lumbar spine History of hysterectomy History of laminectomy Social History Smoking Status: Never smoker alcohol intake: current alcohol intake frequency: a few times a week Alcohol type: wine substance use type: does not use frequency: 3-4 times per week ROS ROS ED Constitutional Constitutional ED: Denies chills or fever(s) Musculoskeletal Musculoskeletal: Reports extremity pain; Denies neck pain Integumentary Denies Abrasions, rash or wounds Neurologic Neurologic: Denies paresthesias or weakness EXAM Physical Exam Const Vital Signs: 10/27/22 13:49 10/27/22 13:49 Temperature 97.6 F L Temperature Source Temporal Pulse Rate 85 Respiratory Rate 14 Blood Pressure 137/77 H Blood Pressure Mean 97 Pulse Ox 95 Oxygen Delivery Method Room Air Positive well nourished and well developed General Appearance ED: well developed and NAD Neck full ROM and supple Back/Spine normal ROM and normal to inspection Extremity Extremity Narrative: Clinically, probable small effusion left knee. No bony tenderness. Able to straight but with pain, able to flex to 90 degrees or almost there, with little problem, all ligaments stable with short endpoints and no's significant discomfort or laxity on stressing including anterior and posterior drawer signs. Neuro oriented x3, no focal motor deficits and no sensory deficits noted Sensorium / Orientation: alert Psych mental status grossly normal and thought process normal Skin no wounds Rashes: no rashes MDM MDM MDM Narrative Medical decision making narrative: 4 view x-ray series of the left knee were obtained and on my interpretation are negative for any acute. Radiology in agreement, adding that she probably has a small effusion. Her exam is fairly benign, consistent with difficulty moving and straight knee due to an effusion. We discussed the possibility of internal derangement, although this is less likely given the low force mechanism of injury, and it is possible that once the effusion goes away she will be able to go back to normal activities. However for now I recommend rest, Sukhi wrap, occasional ibuprofen which was given here, and outpatient follow-up with orthopedic she is comfortable with that plan. Radiography Diagnostic Testing: Clinical Impression(s) from Imaging Studies Knee X-Ray 10/27/22 14:05 IMPRESSION: Degenerative arthrosis. Small joint effusion. Electronically Signed: Anmol Pandya MD at 14:27 EST , Discharge Plan Triage Chief Complaint: Lower Extremity Injury ED Provider: Matt Ruggiero Dx/Rx/DC Orders Clinical Impression: Effusion of left knee joint Instructions: ED Bandage Elastic Wrap, ED Knee Effusion Prescriptions: No Action multivitamin [Daily Multi-Vitamin] tablet 1 tab PO QAM ascorbic acid (vitamin C) 500 MG tablet 500 mg PO DAILY calcium carbonate-vitamin D3 1 EACH tablet 1 ea PO DAILY glucos sul [id number] 1 EACH capsule 1 ea PO DAILY Primary Care Provider: Curtis Bianchi Referrals: Curtis Bianchi MD [Primary Care Provider] - Glenn Millan MD [Med Staff - Active Staff] - As soon as possible Disposition Disposition: Home, Self Care
[2022-10-27] MEDS: Ibuprofen 200 MG Tablet 400 MG PO (16:19)
== END 2022-10-27 16:22 | disposition home or self-care (01) ==
PROVIDERS: Emergency Provider Emergency Medicine; PCP Family Medicine; Visit Provider Emergency Medicine
DX: M25.462 Effusion, left knee (principal)
CPT/HCPCS: 73564; 99283

== ENCOUNTER → 2023-11-02 | Outpatient (CLI) | payer MEDICARE, OTHER, SELFPAY ==
--- NOTE | 2023-11-02 10:40 | BI_ITS ---
MAMMOGRAPHY - BILATERAL SCREENING 3-D TOMOSYNTHESIS REASON FOR EXAM: Female, 83 years old. SCREENING PERTINENT HISTORY: No significant family history. TECHNIQUE: 2-D mammograms and 3-D Tomosynthesis of the breast (s) were performed. CAD was performed. COMPARISON: 09/22/2022 FINDINGS: The breast composition is composed of scattered fibroglandular density. Scattered benign calcifications are seen. No dense spiculated masses or suspicious microcalcifications are identified. No architectural distortion is identified. There is no skin thickening or retraction. There has been no significant change since the prior study. BI/SCRN MAMM (CAD)W/VIMAL BILAT IMPRESSION: No mammographic signs of malignancy. Routine yearly mammograms recommended. ASSESSMENT CATEGORY: BIRADS Category 1: Negative. A letter regarding these results will be sent to the patient by the facility within 30 days. FOLLOW UP RECOMMENDATION: Yearly follow up mammogram recommended. (A) Approximately 10% of breast cancers are not detected by mammography. A normal mammogram should not delay biopsy of a clinically suspicious abnormality. Electronically Signed: Rui Guerrero MD at 15:38 EST ,
== END | disposition home or self-care (01) ==
LOC: OPBI 10:38
PROVIDERS: PCP Family Medicine; Referring Provider Family Medicine; Visit Provider Family Medicine
DX: Z12.31 Encounter for screening mammogram for malignant neoplasm of breast (principal)
CPT/HCPCS: 77063; 77067

== ENCOUNTER → 2024-11-21 | Outpatient (CLI) | payer MEDICARE, OTHER, SELFPAY ==
--- NOTE | 2024-11-21 09:25 | BI_ITS ---
EXAM: SCRN MAMM (CAD)W/VIMAL BILAT 11/21/2024 CLINICAL HISTORY: F, Age 84 y/o , SCREENING TECHNIQUE: Bilateral Diagnostic digital breast tomosynthesis with 2D and 3D images. Computer aided detection. COMPARISON: Prior exam(s) dated 11/02/2023, 09/22/2022. FINDINGS: TISSUE DENSITY: The breast tissue is composed of scattered area of fibroglandular density. Bilateral Breast Mammographic Findings: No significant masses, calcifications or other abnormalities are identified. BI/SCRN MAMM (CAD)W/VIMAL BILAT IMPRESSION: Right Breast: BIRADS 1 NEGATIVE. Left Breast: BIRADS 1 NEGATIVE. OVERALL FINAL ASSESSMENT: BIRADS 1 NEGATIVE. RECOMMENDATION: Routine annual follow-up in 1 Year A letter with findings and recommendations will be mailed to the patient. Reading Location: [facility]
--- NOTE | 2024-11-21 09:25 | BD_ITS ---
EXAM: DEXA BONE DENSITY STUDY 11/21/2024 REASON FOR EXAM: . F,84 y/o postmenopausal TECHNIQUE: DXA scan of the lumbar spine and total body less head, using make and model. REFERENCE LINKS: [facility] Pediatric Positions [facility] Adult Positions COMPARISON: DEXA examination dated 09/22/2022 FINDINGS: BMD and Z-SCORES Lumbar spine: 1.023 g/cm2, T-score measures -0.3. Z-Score 2.6 L2 through L3 Change from prior: Increase of 6.4% since the prior study dated 09/22/2022 Left femoral neck: 0.626 g/cm2, T-score measures -2.0 Z-Score 0.5 Femoral neck comparison data not recommended for monitoring change. Left total hip: 0.720 g/cm2, T-score measures -1.8 Z-Score 0.5 Right femoral neck: 0.681 g/cm2, T-score measures -1.5 Z-Score 1.0 Femoral neck comparison data not recommended for monitoring change. Right total hip: 0.740 g/cm2, T-score measures -1.7 Z-Score 0.6 Fracture Risk Calculation: FRAX (10-year Fracture Risk) Score for major osteoporotic fracture is 21% and for hip fracture is 5.6% BD/Dexa Bone Density Study IMPRESSION: Patient demonstrates osteopenia of both hips and normal bone mineral density of the lumbar spine. Recommend follow-up, if clinically warranted. Reading Location: [id number]
== END | disposition home or self-care (01) ==
PROVIDERS: PCP Family Medicine; Referring Provider Family Medicine; Visit Provider Family Medicine
DX: Z00.00 Encounter for general adult medical examination without abnormal findings (principal); Z12.31 Encounter for screening mammogram for malignant neoplasm of breast; Z78.0 Asymptomatic menopausal state
CPT/HCPCS: 77063; 77067; 77080

== ENCOUNTER → 2025-02-14 | Outpatient (CLI) | payer MEDICARE, OTHER, SELFPAY ==
--- NOTE | 2025-02-14 10:32 | RAD_ITS ---
EXAM: XR Lumbosacral Spine Complete with Flexion/Extension, 6 or More Views CLINICAL INDICATION: HX OF LUMBAR DDD. R LEG PAIN TECHNIQUE: Lateral, frontal, oblique and lateral flexion/extension views of the lumbar spine and sacrum. COMPARISON: No relevant prior studies available. FINDINGS: VERTEBRAE: Status post posterior fusion of L4-S1. Intact hardware. Anatomic position. Moderate endplate degenerative changes and disc disease of the visualized spine. Osteopenia. Normal alignment. No acute fracture or significant dynamic instability. SACRUM/COCCYX: Unremarkable as visualized. No acute fracture. DISC SPACES: See above. SOFT TISSUES: Unremarkable. VASCULATURE: Scattered calcified atherosclerotic disease of aorta. RAD/L/S Spine w Bend Min 6 Vw IMPRESSION: 1. No acute fracture or significant dynamic instability. 2. Postoperative changes as above. Reading Location: [id number]
== END | disposition home or self-care (01) ==
LOC: MTRAD 10:21
PROVIDERS: PCP Family Medicine; Referring Provider Family Medicine; Visit Provider Family Medicine
DX: M54.41 Lumbago with sciatica, right side (principal)
CPT/HCPCS: 72114

== ENCOUNTER 2025-07-15 09:30 | Outpatient (RCR) | payer MEDICARE, OTHER, SELFPAY ==
--- NOTE | 2025-02-20 11:26 | HP.PTEVAL ---
Patient's Visit Information Visit Information Visit Information: RADHA LING is a 84 year old F referred to Physical Therapy by Dr. Demetris Bianchi MD with a diagnosis of RIGHT KNEE PAIN ,PES ASNERINE. Date of Evaluation: 02/20/25 Physical Therapist: Vinicius Payton, PT, Cert MDT, OCS Visit Plan Frequency: 2x /Week Duration: 4 Weeks Plan: PT INTERVENTIONS : -MODALITIES US/ESTIM FOR PAIN -STRETCHING HAMSTRINGS -GLUT MEDIUS/HIP FLEXION STRENGTHENING -HAMSTRINGS STRENGTHENING -FUNCTIONAL STRENGTHENING - Subjective Subjective: This 84 y/o female presents to physical therapy with right knee pain. Patient has had knee pain for 6 weeks . Initially ,seen Dr Millan had Euflexxa injection x3 ,tried cortisone injection . Patient had h/o lumbar surgery Sep 2019 . Did have x-rays looked good . Seen DR not related to back. Patient has pain more pain medial knee . Aggravating factors at night ,not squatting. Patient has been stretching. Occasionally paresthesia/tingling thigh. Symptoms affects sleeping .Patient had x-rays showed Mild/moderate tricompartmental degenerative changes with trace suprapatellar effusion. P Pain Right Knee: Pain Intensity (Out of 10): 8 Pain Intensity Range: 10 Comment: MEDIAL Objective Objective: POSTURE: mild forward posture ,mild knee valgus GAIT: reciprocal pattern with slight antalgic gait PALAPTION: very tender pes anserine ,medial joint line NEURO: intact AROM: supine knee flexion 0 -125 degrees MMT: quads/hams 4/5 ,(peak force )hip flexion /abduction 0 FLEXABILITY: hamstrings WFL Balance/Special Test Scores Lower Extremity Functional Score: 35 Goals Goal 1:: Patient to be I with HEP for knee Goal Time Frame: 4-6 Weeks Goal 2:: Patient to improve demonstrate 50% improvement with less pain with function Goal Time Frame: 4-6 Weeks Goal 3:: Patient to improve LFES score by 5 points to improve QOL and function Goal Time Frame: 4-6 Weeks Goal 4:: Patient to demonstrate 50% improvement with ADLS and function Goal Time Frame: 4-6 Weeks Rehabilitation Potential Physical Therapy Diagnosis: This patient has right knee pain with very TTP pes anserine and medial joint line weakness right hip flexion and glut medius thus benefit from skilled PT Rehabilitation Potential: Fair Anticipated Interventions Patient/Client Instruction: Educate patient on: Condition and Plan of Care For the Purpose of:: To decrease pain, To increase ROM, To improve muscle performance and motor function, To improve ability to perform ADL's, To increase tolerance to activity/condition/position, To improve ability of physical actions for home/community/work/leisure, To improve health of tissue, To decrease soft tissue restriction and To increase flexibility/ROM Therapeutic Exercise to Include: Strength training, Endurance training, Balance training, Flexibilty training and Active ROM Comment: GLUT MEDIUS AND HIP FLEXION HAMSTRINGS For the Purpose of:: To decrease pain, To decrease swelling/inflammation, To increase ROM, To improve muscle performance and motor function, To improve ability to perform ADL's, To increase tolerance to activity/condition/position, To improve ability of physical actions for home/community/work/leisure, To improve gait and locomotor functions, To decrease soft tissue restriction, To increase flexibility/ROM, To improve balance and To improve tolerance to ADL's TENS: Yes IF ES: Yes Cryotherapy (ice pack, ice massage): Yes Thermo therapy (hot pack): Yes Ultrasound (thermal/non thermal): Yes For the Purpose of:: To decrease pain, To decrease swelling/inflammation, To increase ROM, To improve nutrient delivery to tissue, To increase oxygenation perfusion, To improve health of tissue and To decrease soft tissue restriction Text: Thank you for the opportunity to evaluate your patient. For Medicare and Medicare HMO plans, please review the plan of care and approve it. It will need to be FAXED BACK to us at [phone] for Medicare purposes. For Medicare only, by signing this I certify the plan of care. Please let me know if there are questions or concerns regarding this plan of care. Physician Signature: Date:
--- NOTE | 2025-03-18 09:48 | HP.PTREVAL ---
Re-Evaluation Intro: Dr. Demetris Bianchi MD, It has been my pleasure to treat RADHA LING over the last 9 visits for RIGHT KNEE PAIN ,PES ASNERINE. Please see the progress note below for an update on the physical therapy plan of care! Subjective Subjective: Steps are easier some alternating steps Walking good but get tired Objective Objective/Function: POSTURE: mild forward posture ,mild knee valgus GAIT: reciprocal pattern with slight antalgic gait PALAPTION:very tender pes anserine ,mild medial joint line NEURO: intact AROM: supine knee flexion 0 -125 degrees MMT: quads/hams 4/5 ,(peak force )hip [id number] /abduction 8.9 FLEXABILITY: hamstrings WFL Plan Plan Plan: PT INTERVENTIONS : -MODALITIES US/ESTIM FOR PAIN -STRETCHING HAMSTRINGS -GLUT MEDIUS/HIP FLEXION STRENGTHENING -HAMSTRINGS STRENGTHENING -FUNCTIONAL STRENGTHENING - Balance/Gait/Functional tests Balance/Special Test Scores Lower Extremity Functional Score: 36 Goals Goals Goal 1:: Patient to be I with HEP for knee Goal Time Frame: 4-6 Weeks Goal Progress: Progressing Goal 2:: Patient to improve demonstrate 60% improvement with less pain with function ( new goal) Goal Time Frame: 4-6 Weeks Goal 3:: Patient to improve LFES score by 5 points to improve QOL and function Goal Time Frame: 4-6 Weeks Goal 4:: Patient to demonstrate 60% improvement with ADLS and function ( new goal) Goal Time Frame: 4-6 Weeks Goal 5:: Improve hip flexion/abduction by 5-10# peak force to improve gait and function( new goal) Goal Time Frame: 4-6 Weeks Anticipated Interventions Anticipated Interventions Patient/Client Instruction: Educate patient on: Condition and Plan of Care For the Purpose of:: To decrease pain, To increase ROM, To improve muscle performance and motor function, To improve ability to perform ADL's, To increase tolerance to activity/condition/position, To improve ability of physical actions for home/community/work/leisure, To improve health of tissue, To decrease soft tissue restriction and To increase flexibility/ROM Therapeutic Exercise to Include: Strength training, Endurance training, Balance training, Flexibilty training and Active ROM Comment: GLUT MEDIUS AND HIP FLEXION HAMSTRINGS For the Purpose of:: To decrease pain, To decrease swelling/inflammation, To increase ROM, To improve muscle performance and motor function, To improve ability to perform ADL's, To increase tolerance to activity/condition/position, To improve ability of physical actions for home/community/work/leisure, To improve gait and locomotor functions, To decrease soft tissue restriction, To increase flexibility/ROM, To improve balance and To improve tolerance to ADL's TENS: Yes IF ES: Yes Cryotherapy (ice pack, ice massage): Yes Thermo therapy (hot pack): Yes Ultrasound (thermal/non thermal): Yes For the Purpose of:: To decrease pain, To decrease swelling/inflammation, To increase ROM, To improve nutrient delivery to tissue, To increase oxygenation perfusion, To improve health of tissue and To decrease soft tissue restriction Re-Evaluation Ending Re-evaluation ending: Please do not hesitate to contact me at [phone] by phone or if you have questions or concerns regarding this new plan of care! Sincerely, Vinicius Payton, PT, Cert MDT, OCS
--- NOTE | 2025-04-17 10:18 | HP.PTREVAL ---
Re-Evaluation Intro: Dr. Demetris Bianchi MD, It has been my pleasure to treat RADHA LING over the last 17 visits for RIGHT KNEE PAIN ,PES ASNERINE. Please see the progress note below for an update on the physical therapy plan of care! Subjective Subjective: Doing much better hamstrings better less tender bursae able to do steps w/o rail Objective Objective/Function: POSTURE: mild forward posture ,mild knee valgus GAIT: reciprocal pattern with slight antalgic gait PALAPTION:very tender pes anserine ,mild medial joint line NEURO: intact AROM: supine knee flexion 0 -125 degrees MMT: quads/hams 4/5 ,(peak force )hip flexion 31.3 /abduction 18.9 FLEXABILITY: hamstrings WFL Plan Plan Plan: PT INTERVENTIONS : -MODALITIES US/ESTIM FOR PAIN -STRETCHING HAMSTRINGS -GLUT MEDIUS/HIP FLEXION STRENGTHENING -HAMSTRINGS STRENGTHENING -FUNCTIONAL STRENGTHENING - Balance/Gait/Functional tests Balance/Special Test Scores Lower Extremity Functional Score: 36 Goals Goals Goal 1:: Patient to be I with HEP for knee Goal Time Frame: 4-6 Weeks Goal Progress: Progressing Goal 2:: Patient to improve demonstrate 60% improvement with less pain with function ( new goal) Goal Time Frame: 4-6 Weeks Goal 3:: Patient to improve LFES score by 5 points to improve QOL and function Goal Time Frame: 4-6 Weeks Goal 4:: Patient to demonstrate 60% improvement with ADLS and function ( new goal) Goal Time Frame: 4-6 Weeks Goal 5:: Improve hip flexion/abduction by 5-10# peak force to improve gait and function( new goal) Goal Time Frame: 4-6 Weeks Anticipated Interventions Anticipated Interventions Patient/Client Instruction: Educate patient on: Condition and Plan of Care For the Purpose of:: To decrease pain, To increase ROM, To improve muscle performance and motor function, To improve ability to perform ADL's, To increase tolerance to activity/condition/position, To improve ability of physical actions for home/community/work/leisure, To improve health of tissue, To decrease soft tissue restriction and To increase flexibility/ROM Therapeutic Exercise to Include: Strength training, Endurance training, Balance training, Flexibilty training and Active ROM Comment: GLUT MEDIUS AND HIP FLEXION HAMSTRINGS For the Purpose of:: To decrease pain, To decrease swelling/inflammation, To increase ROM, To improve muscle performance and motor function, To improve ability to perform ADL's, To increase tolerance to activity/condition/position, To improve ability of physical actions for home/community/work/leisure, To improve gait and locomotor functions, To decrease soft tissue restriction, To increase flexibility/ROM, To improve balance and To improve tolerance to ADL's TENS: Yes IF ES: Yes Cryotherapy (ice pack, ice massage): Yes Thermo therapy (hot pack): Yes Ultrasound (thermal/non thermal): Yes For the Purpose of:: To decrease pain, To decrease swelling/inflammation, To increase ROM, To improve nutrient delivery to tissue, To increase oxygenation perfusion, To improve health of tissue and To decrease soft tissue restriction Re-Evaluation Ending Re-evaluation ending: Please do not hesitate to contact me at [phone] by phone or if you have questions or concerns regarding this new plan of care! Sincerely, Vinicius Payton, PT, Cert MDT, OCS
--- NOTE | 2025-04-17 10:20 | HP.PTREVAL ---
Re-Evaluation Intro: Dr. Demetris Bianchi MD, It has been my pleasure to treat RADHA LING over the last 17 visits for RIGHT KNEE PAIN ,PES ASNERINE. Please see the progress note below for an update on the physical therapy plan of care! Subjective Subjective: Doing much better hamstrings better less tender bursae able to do steps w/o rail Objective Objective/Function: POSTURE: mild forward posture ,mild knee valgus GAIT: reciprocal pattern with slight antalgic gait PALAPTION:very tender pes anserine ,mild medial joint line NEURO: intact AROM: supine knee flexion 0 -125 degrees MMT: quads/hams 4/5 ,(peak force )hip flexion 31.3 /abduction 18.9 FLEXABILITY: hamstrings WFL Plan Plan Plan: PT INTERVENTIONS : -MODALITIES US/ESTIM FOR PAIN -STRETCHING HAMSTRINGS -GLUT MEDIUS/HIP FLEXION STRENGTHENING -HAMSTRINGS STRENGTHENING -FUNCTIONAL STRENGTHENING - Balance/Gait/Functional tests Balance/Special Test Scores Lower Extremity Functional Score: 36 Goals Goals Goal 1:: Patient to be I with HEP for knee Goal Time Frame: 4-6 Weeks Goal Progress: Progressing Goal 2:: Patient to improve demonstrate 70% improvement with less pain with function ( new goal) Goal Time Frame: 4-6 Weeks Goal 3:: Patient to improve LFES score by 5 points to improve QOL and function Goal Time Frame: 4-6 Weeks Goal Progress: Progressing Goal 4:: Patient to demonstrate 70% improvement with ADLS and function ( new goal) Goal Time Frame: 4-6 Weeks Goal 5:: Improve hip flexion/abduction by 5-10# peak force to improve gait and function( new goal) Goal Time Frame: 4-6 Weeks Anticipated Interventions Anticipated Interventions Patient/Client Instruction: Educate patient on: Condition and Plan of Care For the Purpose of:: To decrease pain, To increase ROM, To improve muscle performance and motor function, To improve ability to perform ADL's, To increase tolerance to activity/condition/position, To improve ability of physical actions for home/community/work/leisure, To improve health of tissue, To decrease soft tissue restriction and To increase flexibility/ROM Therapeutic Exercise to Include: Strength training, Endurance training, Balance training, Flexibilty training and Active ROM Comment: GLUT MEDIUS AND HIP FLEXION HAMSTRINGS For the Purpose of:: To decrease pain, To decrease swelling/inflammation, To increase ROM, To improve muscle performance and motor function, To improve ability to perform ADL's, To increase tolerance to activity/condition/position, To improve ability of physical actions for home/community/work/leisure, To improve gait and locomotor functions, To decrease soft tissue restriction, To increase flexibility/ROM, To improve balance and To improve tolerance to ADL's TENS: Yes IF ES: Yes Cryotherapy (ice pack, ice massage): Yes Thermo therapy (hot pack): Yes Ultrasound (thermal/non thermal): Yes For the Purpose of:: To decrease pain, To decrease swelling/inflammation, To increase ROM, To improve nutrient delivery to tissue, To increase oxygenation perfusion, To improve health of tissue and To decrease soft tissue restriction Re-Evaluation Ending Re-evaluation ending: Please do not hesitate to contact me at [phone] by phone or if you have questions or concerns regarding this new plan of care! Sincerely, Vinicius Payton, PT, Cert MDT, OCS
--- NOTE | 2025-05-15 09:18 | HP.PTREVAL ---
Re-Evaluation Intro: Dr. Demetris Bianchi MD, It has been my pleasure to treat RADHA LING over the last 25 visits for RIGHT KNEE PAIN ,PES ASNERINE. Please see the progress note below for an update on the physical therapy plan of care! Subjective Subjective: Still need more PT balance decreased -effort getting up at of chair -stairs are easier Objective Objective/Function: POSTURE: mild forward posture ,mild knee valgus GAIT: reciprocal pattern with slight antalgic gait PALAPTION tender pes anserine ,mild medial joint line NEURO: intact AROM: supine knee flexion 0 -125 degrees MMT: ,(peak force )hip flexion 30.3 /abduction 17.9 ,quads 33.9 ,hamstrings 34.1 FLEXABILITY: hamstrings WFL Plan Plan Plan: PT INTERVENTIONS : -MODALITIES US/ESTIM FOR PAIN -STRETCHING HAMSTRINGS -GLUT MEDIUS/HIP FLEXION /QUADS STRENGTHENING -HAMSTRINGS STRENGTHENING -FUNCTIONAL STRENGTHENING Balance/Gait/Functional tests Balance/Special Test Scores Lower Extremity Functional Score: 50 Goals Goals Goal 1:: Patient to be I with HEP for knee Goal Time Frame: 4-6 Weeks Goal Progress: Progressing Goal 2:: Patient to improve demonstrate 70% improvement with less pain with function ( new goal) Goal Time Frame: 4-6 Weeks Goal 3:: Patient to improve LFES score by 5 points to improve QOL and function( new goal) Goal Time Frame: 4-6 Weeks Goal Progress: Progressing Goal 4:: Patient to demonstrate 80% improvement with ADLS and function ( new goal) Goal Time Frame: 4-6 Weeks Goal 5:: Improve hip flexion/abduction by 5-10# peak force to improve gait and function( new goal) Goal Time Frame: 4-6 Weeks Goal Progress: Progressing Anticipated Interventions Anticipated Interventions Patient/Client Instruction: Educate patient on: Condition and Plan of Care For the Purpose of:: To decrease pain, To increase ROM, To improve muscle performance and motor function, To improve ability to perform ADL's, To increase tolerance to activity/condition/position, To improve ability of physical actions for home/community/work/leisure, To improve health of tissue, To decrease soft tissue restriction and To increase flexibility/ROM Therapeutic Exercise to Include: Strength training, Endurance training, Balance training, Flexibilty training and Active ROM Comment: GLUT MEDIUS AND HIP FLEXION HAMSTRINGS For the Purpose of:: To decrease pain, To decrease swelling/inflammation, To increase ROM, To improve muscle performance and motor function, To improve ability to perform ADL's, To increase tolerance to activity/condition/position, To improve ability of physical actions for home/community/work/leisure, To improve gait and locomotor functions, To decrease soft tissue restriction, To increase flexibility/ROM, To improve balance and To improve tolerance to ADL's TENS: Yes IF ES: Yes Cryotherapy (ice pack, ice massage): Yes Thermo therapy (hot pack): Yes Ultrasound (thermal/non thermal): Yes For the Purpose of:: To decrease pain, To decrease swelling/inflammation, To increase ROM, To improve nutrient delivery to tissue, To increase oxygenation perfusion, To improve health of tissue and To decrease soft tissue restriction Re-Evaluation Ending Re-evaluation ending: Please do not hesitate to contact me at [phone] by phone or if you have questions or concerns regarding this new plan of care! Sincerely, Vinicius Payton, PT, Cert MDT, OCS
--- NOTE | 2025-06-19 10:45 | HP.PTREVAL ---
Re-Evaluation Intro: Dr. Demetris Bianchi MD, It has been my pleasure to treat RADHA LING over the last 33 visits for RIGHT KNEE PAIN ,PES ASNERINE. Please see the progress note below for an update on the physical therapy plan of care! Subjective Subjective: Focus on balance no pain ,occasional knee Housework can increase pain NO falls Objective Objective/Function: POSTURE: mild forward posture ,mild knee valgus GAIT: reciprocal pattern with slight antalgic gait PALAPTION tender pes anserine ,mild medial joint line NEURO: intact AROM: supine knee flexion 0 -125 degrees MMT: ,(peak force )hip flexion 31.7 /abduction 27.9 ,quads 33.1 ,hamstrings 34.5 FLEXABILITY: hamstrings WFL Unable SLS left Plan Plan Plan: PT INTERVENTIONS : -Focus on balance training -STRETCHING HAMSTRINGS -GLUT MEDIUS/HIP FLEXION /QUADS STRENGTHENING -HAMSTRINGS STRENGTHENING -FUNCTIONAL STRENGTHENING Balance/Gait/Functional tests Balance/Special Test Scores Lower Extremity Functional Score: 50 Goals Goals Goal 1:: Patient to be I with HEP for knee Goal Time Frame: 4-6 Weeks Goal Progress: Progressing Goal 2:: Patient to improve demonstrate 70% improvement with less pain with function ( new goal) Goal Time Frame: 4-6 Weeks Goal 3:: Patient to improve LFES score by 5 points to improve QOL and function( new goal) Goal Time Frame: 4-6 Weeks Goal Progress: Progressing Goal 4:: Patient to demonstrate 90% improvement with ADLS and function ( new goal) Goal Time Frame: 4-6 Weeks Goal 5:: Improve hip flexion/abduction by 5-10# peak force to improve gait and function( new goal) Goal Time Frame: 4-6 Weeks Goal Progress: Progressing Goal 6:: Patient to increase functional gait assessment by 5 points ( new goal) Goal Time Frame: 4-6 Weeks Anticipated Interventions Anticipated Interventions Patient/Client Instruction: Educate patient on: Condition and Plan of Care For the Purpose of:: To decrease pain, To increase ROM, To improve muscle performance and motor function, To improve ability to perform ADL's, To increase tolerance to activity/condition/position, To improve ability of physical actions for home/community/work/leisure, To improve health of tissue, To decrease soft tissue restriction and To increase flexibility/ROM Therapeutic Exercise to Include: Strength training, Endurance training, Balance training, Flexibilty training and Active ROM Comment: GLUT MEDIUS AND HIP FLEXION HAMSTRINGS For the Purpose of:: To decrease pain, To decrease swelling/inflammation, To increase ROM, To improve muscle performance and motor function, To improve ability to perform ADL's, To increase tolerance to activity/condition/position, To improve ability of physical actions for home/community/work/leisure, To improve gait and locomotor functions, To decrease soft tissue restriction, To increase flexibility/ROM, To improve balance and To improve tolerance to ADL's TENS: Yes IF ES: Yes Cryotherapy (ice pack, ice massage): Yes Thermo therapy (hot pack): Yes Ultrasound (thermal/non thermal): Yes For the Purpose of:: To decrease pain, To decrease swelling/inflammation, To increase ROM, To improve nutrient delivery to tissue, To increase oxygenation perfusion, To improve health of tissue and To decrease soft tissue restriction Re-Evaluation Ending Re-evaluation ending: Please do not hesitate to contact me at [phone] by phone or if you have questions or concerns regarding this new plan of care! Sincerely, Vinicius Payton, PT, Cert MDT, OCS
--- NOTE | 2025-07-15 09:51 | HP.PTDCSUM ---
Discharge Summary D/C summary: It has been my pleasure to treat RADHA LING referred by Dr. Demetris Bianchi MD, with the diagnosis of RIGHT KNEE PAIN ,PES ASNERINE for a total of 37 visit(s). Discharge Date: 07/15/25 Please see the following information for a summary of their discharge status. Subjective Subjective: Doing good knee pain Balance issue Pain Right Knee: Pain Intensity (Out of 10): 0 Overall Improvement % Improvement: 85 Objective Objective/Function: POSTURE: mild forward posture ,mild knee valgus GAIT: reciprocal pattern with slight antalgic gait PALAPTION tender pes anserine ,mild medial joint line NEURO: intact AROM: supine knee flexion 0 -125 degrees MMT: ,(peak force )hip flexion 31.7 /abduction 27.9 ,quads 33.1 ,hamstrings 34.5 FLEXABILITY: hamstrings WFL Unable SLS left Goals Goal 1:: Patient to be I with HEP for knee Goal Progress: Goal Met Goal 2:: Patient to improve demonstrate 70% improvement with less pain with function ( new goal) Goal Progress: Goal Met Goal 3:: Patient to improve LFES score by 5 points to improve QOL and function( new goal) Goal Progress: Goal Met Goal 4:: Patient to demonstrate 90% improvement with ADLS and function ( new goal) Goal Progress: Goal Met Goal 5:: Improve hip flexion/abduction by 5-10# peak force to improve gait and function( new goal) Goal Progress: Goal Met Goal 6:: Patient to increase functional gait assessment by 5 points ( new goal) Goal Progress: Goal Met Plan Plan: D/C D/C Information Discharge Comments: HEP AND GYM d/c sentence: If there are questions or concerns regarding this patient's physical therapy, please feel free to call me at [phone]. Thank you for the referral of this patient. Sincerely, Vinicius Payton, PT, Cert MDT, OCS Balance/Gait/Functional tests Balance/Special Test Scores Lower Extremity Functional Score: 53 Improvement % Improvement: 85
== END 2025-07-15 19:00 | disposition home or self-care (01) ==
LOC: PT 09:30
PROVIDERS: PCP Family Medicine; Referring Provider Family Medicine; Visit Provider Family Medicine
DX: M25.561 Pain in right knee (principal)
CPT/HCPCS: 97035; 97110; 97140; 97162; 97530